=== PATIENT | female | born 1935 | race Caucasian/White ===

== ENCOUNTER → 2016-07-12 | Outpatient (CLI) | payer OTHER ==
[~2016-07-12] MED LIST: ESCI10TA17 PO; FLUT1AER5 INH; LISI10TA PO; OXYB5TAB74 PO; PANT1TAB48 PO; PLEXUS PROBIO PO; VTMD PO
--- NOTE | 2016-07-12 15:54 | EXERCISE STRESS TEST ---
This stress test is being performed because of exertional dyspnea. The patient exercised for 3 minutes on a standard Toby protocol attaining 4.6 METS and a peak heart rate of 146 beats per minute (greater than 100% predicted maximum). The test was terminated due to fatigue. The patient did not experience chest discomfort. Initial blood pressure 155/79 and this increased to 190/80 at peak exertion. Baseline EKG shows normal sinus rhythm without abnormalities. Throughout exercise recovery, the ST segments remained normal. There were no dysrhythmias. CONCLUSIONS: 1. Normal exercise treadmill test at 4.6 METS and a peak heart rate of greater than 100% predicted maximum. 2. No exercise induced chest pain. 3. No dysrhythmias.
== END | disposition home or self-care (01) ==
LOC: C.CPL 09:45
PROVIDERS: ATTEND Family Medicine
DX: R06.02 Shortness of breath (principal)

== ENCOUNTER → 2017-01-03 | Outpatient (CLI) | payer OTHER ==
--- NOTE | 2017-01-03 10:56 | DIAGNOSTIC IMAGING REPORT ---
ORBITS FOR MRI HISTORY:81 yearsFemaleLUBMAR RADICULOPATHY . Patient states that a piece of gold is present within the right orbit. COMPARISON: Brain MRI 03/24/2009. TECHNIQUE: 3 views of the orbits. FINDINGS: There is a 1.9 x 0.5 cm curved metallic density structure within the anterior aspect of the superior right orbit. No additional radiopaque body is seen. No fracture. Paranasal sinuses are aerated. Dental amalgam hardware is noted. IMPRESSION: 1.9 x 0.5 cm curved metallic density structure is present within the anterior aspect of the superior right orbit. The above report was generated using voice recognition software. It may contain grammatical, syntax or spelling errors. Electronically signed by: Good Dupont 01/03/2017 10:54 AM Dictated Date/Time: 01/03/2017 10:51 AM
== END | disposition home or self-care (01) ==
LOC: C.RAD 10:23
PROVIDERS: ATTEND Neurological Surgery
DX: M54.16 Radiculopathy, lumbar region (principal); T15.91XA Foreign body on external eye, part unspecified, right eye, initial encounter; W45.8XXA Other foreign body or object entering through skin, initial encounter

== ENCOUNTER → 2017-01-08 | Outpatient (CLI) | payer OTHER ==
--- NOTE | 2017-01-08 10:59 | DIAGNOSTIC IMAGING REPORT ---
LUMBAR SPINE MRI HISTORY: Back pain M54.16 TECHNIQUE: Multiplanar multisequence MRI of the lumbar spine was performed without the use of contrast. COMPARISON: None FINDINGS: For the purpose of the report the L5-S1 disc space will be located on axial image 23 of 30. Partial lumbarization of the first sacral segment versus 6 lumbar type vertebral bodies. Considerable degenerative disc change throughout. L1-L2: Mild broad-based bulging disc. Mild impact anterior thecal sac. Minimal narrowing of the neuroforamina bilaterally L2-L3: Mild multifactorial narrowing of the spinal canal. Neuroforamina are patent bilaterally. L3-L4: Mild multifactorial narrowing of the spinal canal. Considerable degenerative change posterior elements. L4-L5: Mild multifactorial narrowing of the L4-L5 level lumbar spine. Considerable degenerative change posterior elements. L5-S1: Minimal disc bulge. Mild narrowing left neuroforamina. IMPRESSION: 1. Considerable degenerative disc change throughout the entire lumbar region. 2. Partial lumbarization of the first sacral segment. 3. Mild multifactorial narrowing of the spinal canal at L2-L3, L3-L4, and L4-L5. 4. Mild broad-based bulging disc L1-L2 and L5-S1 5. No evidence for major disc herniation or severe spinal stenosis. 6. Significant degenerative changes of posterior elements throughout the entire lumbar region. Electronically signed by: Juan Azar M.D. 01/08/2017 10:58 AM Dictated Date/Time: 01/08/2017 10:27 AM
== END | disposition home or self-care (01) ==
LOC: C.MRI 09:26
PROVIDERS: ATTEND Neurological Surgery
DX: M54.16 Radiculopathy, lumbar region (principal); M48.06 Spinal stenosis, lumbar region

== ENCOUNTER → 2017-06-24 | Outpatient (CLI) | payer OTHER ==
[~2017-06-24] MED LIST changes: +DTR/5 PO; -OXYB5TAB74 PO; +PANT1TAB3 PO; -PANT1TAB48 PO
--- NOTE | 2017-06-24 15:30 | MAMMOGRAPHY REPORT ---
BILATERAL DIGITAL SCREENING MAMMOGRAM WITH CAD: 06/24/2017 CLINICAL HISTORY: Routine screening. Patient has no complaints. TECHNIQUE: Bilateral CC and MLO views were obtained. Current study was also evaluated with a Compute r Aided Detection (CAD) system. COMPARISON: Comparison is made to exams dated: 07/24/2011 mammogram - [facility], , and 07/12/2004 mammogram - [facility]. BREAST COMPOSITION: There are scattered areas of fibroglandular density in both breasts. FINDINGS: There are moderate vascular calcifications in the breasts. Numerous benign coarse and memo like calcifications bilaterally. No suspicious mass, architectural distortion or cluster of microcal cifications is seen. IMPRESSION: ACR BI-RADS CATEGORY 2: BENIGN There is no mammographic evidence of malignancy. A 1 year screening mammogram is recommended. The pa tient will receive written notification of the results. Approximately 10% of breast cancers are not detected with mammography. A negative mammographic report should not delay biopsy if a clinically suggestive mass is present. Kassandra Ramos M.D. ay/:06/24/2017 13:11:54 [employer] Developer: Maricel Martínez RT(R)(M), [facility] letter sent: Normal 1/2 BI-RADS Code: ACR BI-RADS Category 2: Benign
== END | disposition home or self-care (01) ==
LOC: C.MAMM 12:30
PROVIDERS: ATTEND Family Medicine
DX: Z12.31 Encounter for screening mammogram for malignant neoplasm of breast (principal)

== ENCOUNTER 2021-05-10 13:25 | Inpatient (IN) ==
[2021-05-10 14:30] LABS: Basophils # (auto) 0.05 K/uL (0-0.2); Basophils % (auto) 0.7 %; Eosinophils # (auto) 0.26 K/uL (0-0.5); Eosinophils % (auto) 3.4 %; Hematocrit (blood only) 43.3 % (37-47); Hemoglobin 14.3 g/dL (12.0-16.0); Immature Granulocytes # (auto) 0.02 K/uL (0.00-0.02); Immature Granulocytes % (auto) 0.3 %; Lymphocytes # (auto) 1.68 K/uL (1.2-3.4); Lymphocytes % (auto) 21.9 %; Mean Corpuscular Hemoglobin 31.4 pg (25-34); Mean Platelet Volume 9.7 fL (7.4-10.4); Monocytes # (auto) 0.91 K/uL (0.11-0.59); Monocytes % (auto) 11.9 %; Neutrophils # (auto) 4.75 K/uL (1.4-6.5); Neutrophils % (auto) 61.8 %; Platelet Count 267 K/uL (130-400); RDW Coefficient of Variation 14.8 % (11.5-14.5); RDW Standard Deviation 51.5 fL (36.4-46.3); Red Blood Count 4.56 M/uL (4.2-5.4); White Blood Count 7.67 K/uL (4.8-10.8)
[2021-05-10 14:48] LABS: BUN Creatinine Ratio 13.9 (10-20); Calcium 9.5 mg/dl (8.5-10.1); Creatinine Clr Calc Pharmacy 37.9 ml/min; Est GFR (African American) 47.7 ml/min; Est GFR (Non-African American) 41.2 ml/min
[2021-05-10 15:10] LABS: Partial Thromboplastin Ratio 0.9; Partial Thromboplastin Time 23.6 Seconds (21.0-31.0)
--- NOTE | 2021-05-10 15:27 | XRay Report ---
XR chest 1V not portable CLINICAL HISTORY: syncope and fall. Evaluate cardiopulmonary status COMPARISON STUDY: 12/18/2020 TECHNIQUE: 1 view of the chest FINDINGS: Single frontal view of the chest demonstrates the cardiomediastinal silhouette to be within normal li mits. The lungs are clear of alveolar opacities. There is no evidence for pleural effusion. There is no evidence for vascular congestion. There is no acute osseous pathology. IMPRESSION: No acute cardiopulmonary disease. ACT 112: Negative or not required by law. Electronically signed by: Jacob Trinidad M.D. 05/10/2021 3:26 PM
--- NOTE | 2021-05-10 15:28 | XRay Report ---
SINGLE VIEW PELVIS; 2 VIEWS LEFT FEMUR CLINICAL HISTORY: Fall. Left leg injury. FINDINGS: 2 AP supine views of the pelvis with AP and crosstable lateral views of the left femur are compared to study dated 10/29/2007. The skeletal structures are osteopenic. Bilateral bipolar hip arthr oplasties are in place. There is no radiographic evidence of acute fracture involving the bony pelvis or the right hip. There is a large acute subtrochanteric periprosthetic fracture of the left proxima l femur with overlying soft tissue edema. Fracture lucency extends extends from the subtrochanteric r egion to the tip of the arthroplasty stem in the mid femoral shaft. There is mild displacement of the proximal fragments. The distal left femur appears intact. A left knee arthroplasty is in place. IMPRESSION: 1. Large periprosthetic fracture of the left proximal femur as detailed above. 2. No additional fracture is seen involving the bony pelvis or the right proximal femur. Electronically signed by: Gregorio Marin M.D. 05/10/2021 3:27 PM
[2021-05-10] MEDS ORDERED: MoRPHine SULFATE 4 MG/ML 1 ML CARP\\VIAL IV STA (16:33)
[2021-05-10] MEDS ORDERED: MoRPHine SULFATE 4 MG/ML 1 ML CARP\\VIAL IV PRN (16:51)
--- NOTE | 2021-05-10 17:06 | CT Scan Report ---
CT head/brain wo con CLINICAL HISTORY: 86 years-old Female with syncope and fall. Acute head injury status post syncope w ith fall TECHNIQUE: Multiple axial CT images of the head were obtained without contrast. A dose lowering tech nique was utilized adhering to the principles of ALARA. COMPARISON: CT cervical spine of same day, head CT 12/18/2020 FINDINGS: No acute intracranial hemorrhage, midline shift, intracranial mass, hydrocephalus, territorial ischem ia or abnormal extra-axial collection. Age-related involutional changes. White matter hypodensities s uggest chronic microvascular ischemic disease. Artifact from the postoperative changes within the rig ht orbit again limits the study. Bilateral lens repair. The calvarium is intact. The paranasal sinuses, mastoid air cells, and middle ear cavities are clear . IMPRESSION: No acute intracranial abnormality or calvarial fracture. ACT 112: Negative or not required by law. The above report was generated using voice recognition software. It may contain grammatical, syntax o r spelling errors. Electronically signed by: George Dupont M.D. 05/10/2021 5:05 PM
[2021-05-10] MEDS: MoRPHine SULFATE 2 MG/ML CARP IV PRN ×5 (17:12→22:31)
--- NOTE | 2021-05-10 17:12 | CT Scan Report ---
CT cervical spine wo con CT DOSE: 1010.81 mGy.cm CLINICAL HISTORY: 86 years-old Female with syncope and fall. Acute head and neck injury status post syncope with fall COMPARISON: Head CT of same day common brain MRI 11/29/2008. TECHNIQUE: Multiple axial CT images of the cervical spine were obtained without contrast. A dose low ering technique was utilized adhering to the principles of ALARA. FINDINGS: Unchanged deformity of the dens suggestive of a chronic fracture. Multilevel intervertebral disc space narrowing, moderate to severe at C5-C6. Pronounced multilevel spondylitic spurring with p osterior disc osteophyte complex formations, most pronounced at C5-C6 and C6 or C7. 4 mm anterolisthe sis C4 on C5 is likely secondary to chronic facet arthrosis. There is severe multilevel facet arthrop athy. Chronic right occipital calvarial defect. Minimal superior end plate compression deformity with out retropulsion involves the T1 vertebral body, likely chronic. Mild extra scoliosis of the cervical thoracic junction. Multilevel neural foraminal narrowing. No pneumothorax. Calcified plaque of the carotid arteries. No prevertebral edema. IMPRESSION: 1. No acute cervical spine fracture or subluxation. 2. Chronic findings as above. ACT 112: Negative or not required by law. The above report was generated using voice recognition software. It may contain grammatical, syntax o r spelling errors. Electronically signed by: George Dupont M.D. 05/10/2021 5:10 PM
--- NOTE | 2021-05-10 17:46 | History & Physical Report ---
Date of Service May 10, 2021 Assessment & Plan (1) Jacquelien-prosthetic femoral shaft fracture: Plan: Acetaminophen 1g PO TID, Dilaudid 0.25-0.5mg IV PRN for pain relief, ondansetron for nausea NPO after midnight, IV fluids Type and screen sent Andre cath inserted Medical optimized for surgery at this time. Revised cardiac risk score 1, 6.0% 30-day risk of , MA or cardiac arrest however given her age I suspect this is an underestimate. TTE should not delay surgery unless requested by anesthesia. Consult orthopedics (2) Fall: Plan: Presyncopal (see below) PT/OT post surgery (3) Syncope: Plan: Systolic murmur on exam. TTE Consider orthostatics post operatively. Hold parameters on lisinopril as below. (4) Mild intermittent asthma: Plan: No exacerbation Monitor for wheezing (5) Anxiety: Plan: Continue Lexapro 10mg HS (6) Hyperthyroidism: Plan: Tired, insomnia TSH improving. Not completely corrected but this shouldn't delay her operation Continue methimazole 40mg PO daily (7) Overactive bladder: Plan: Continue oxybutynin 10mg PO daily (8) Hiatal hernia: Plan: Continue pantoprazole 40mg pO daily (9) Hypertension: Plan: Continue lisinopril with hold parameters Plan: VTE Prophylaxis - deferred to orthopedics post operatively Diet - regular, NPO at midnight Disposition - admit to med/surg Admission and Anticipated Discharge Date Admission Date: May 10, 2021 History of Present Illness Chief Complaint: Fall, left leg pain Primary Care Provider: Casey Enriquez Ronald Lagos is an 86 year old female who presents to the ER following a fall and left leg pain. She was at [employer] on the way to the rest room, became dizzy and lost conciseness, falling onto left side around 1pm. She reports normally having orthostasis but mild and she just takes her time. No chest pain, shortness of breath or dizziness on exertion. Following the fall she reports left groin pain, current severity 10/10 despite morphine. XR confirmed a periprosthetic left femoral fracture. She reports having her total hip replac ement [address] Velazquez. No head injury. She denies any history of heart attack, reports history of TIA although does not take any antiplatelets for this. Patient case was discussed by ER physician with Dr Benz and recommended admission under medicine with orthopedics on consult. Allergies Allergy/AdvReac Type Severity Reaction Status Date / Time No Known Allergies Allergy Unknown Verified 12/18/20 18:40 Home Medications Medication Instructions Recorded Confirmed Type acetaminophen 500 mg tablet 500 mg PO Q6H PRN 12/18/20 05/10/21 History (Tylenol Extra Strength) escitalopram oxalate 10 mg tablet 10 mg PO HS 12/18/20 05/10/21 History lisinopril 20 mg tablet 20 mg PO QAM 12/18/20 05/10/21 History oxybutynin chloride 10 mg 10 mg PO QAM 12/18/20 05/10/21 History tablet,extended release 24 hr pantoprazole 40 mg tablet,delayed 40 mg PO QAM 12/18/20 05/10/21 History release methimazole 10 mg tablet 40 mg PO DAILY 05/10/21 05/10/21 History Past Med/Surg History Medical History (Updated 05/11/21 @ 07:17 by Armando Shane MD) Anxiety Hiatal hernia History of TIA (transient ischemic attack) History of trigeminal neuralgia s/p surgery Hypertension Hyperthyroidism under Dr Barrington Hamilton Overactive bladder Status post bilateral knee replacements Surgical History (Updated 05/10/21 @ 18:53 by Armando Shane MD) History of bilateral hip replacements History of cholecystectomy History of eye surgery Gold weight placed on left eye to help with closing History of hysterectomy with bilateral oophorectomy History of tonsillectomy Social History Smoking Status: Never smoker Hx Substance Use: No Preferred Language: Slovenian Communication Ability: Effective 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 Beliefs That Will Affect Care: None Current Living Situation: Alone Current Living Situation Comment: Other Information That Helps Us Care for You: No Feels Safe at Home: Yes Safety Concerns: Feels Safe At This Time Assistive Devices: Cane, Glasses and Walker Review of Systems Review of Systems: All systems reviewed & are unremarkable except as noted in HPI & below Physical Exam Constitutional: WD/WN, vitals as above Eyes: PERRL, conjunctivae normal, anicteric sclerae ENMT: Mouth: oral mucous membranes not dry Neck: trachea midline, no thyromegaly Respiratory: normal respiratory effort, lungs clear to auscultation Cardiovascular: Rate/Rhythm: regular rate and regular rhythm Heart Sounds: + murmur (4/6 ESM loudest RUSB) Gastrointestinal (Abdomen): normal bowel sounds, soft, nontender, no hepatosplenomegaly Musculoskeletal: shortened, externally rotated left leg. PT/DP pulses intact and cap refill < 2s, full sensation in toes. Skin: no rashes, warm and dry Neurologic: awake; + does not move all extremities (left leg due to pain) and not confused Psychiatric: A+Ox3, euthymic affect Results & Data Results & Data ([facility]) Vital Signs (Past 12 Hours) Vital Signs Temp Pulse Pulse Resp BP BP Pulse Ox 05/10/21 16:41 84 20 178/88 H 97 05/10/21 14:11 36.8 C 75 18 181/94 H 98 Laboratory Results Abnormal lab results 05/10/21 Range/Units 14:21 RDW Std Deviation 51.5 H (36.4-46.3) fL RDW Coeff of [place] 14.8 H (11.5-14.5) % [place] # (Auto) 0.91 H (0.11-0.59) K/uL Diagnostic Findings CT head/brain wo con CLINICAL HISTORY: 86 years-old Female with syncope and fall. Acute head injury status post syncope with fall TECHNIQUE: Multiple axial CT images of the head were obtained without contrast. A dose lowering technique was utilized adhering to the principles of ALARA. COMPARISON: CT cervical spine of same day, head CT 12/18/2020 FINDINGS: No acute intracranial hemorrhage, midline shift, intracranial mass, hydrocephalus, territorial ischemia or abnormal extra-axial collection. Age- related involutional changes. White matter hypodensities suggest chronic microvascular ischemic disease. Artifact from the postoperative changes within the right orbit again limits the study. Bilateral lens repair. The calvarium is intact. The paranasal sinuses, mastoid air cells, and middle ear cavities are clear. IMPRESSION: No acute intracranial abnormality or calvarial fracture. XR chest 1V not portable CLINICAL HISTORY: syncope and fall. Evaluate cardiopulmonary status COMPARISON STUDY: 12/18/2020 TECHNIQUE: 1 view of the chest FINDINGS: Single frontal view of the chest demonstrates the cardiomediastinal silhouette to be within normal limits. The lungs are clear of alveolar opacities. There is no evidence for pleural effusion. There is no evidence for vascular congestion. There is no acute osseous pathology. IMPRESSION: No acute cardiopulmonary disease. CT cervical spine wo con CT DOSE: 1010.81 mGy.cm CLINICAL HISTORY: 86 years-old Female with syncope and fall. Acute head and neck injury status post syncope with fall COMPARISON: Head CT of same day common brain MRI 11/29/2008. TECHNIQUE: Multiple axial CT images of the cervical spine were obtained without contrast. A dose lowering technique was utilized adhering to the principles of ALARA. FINDINGS: Unchanged deformity of the dens suggestive of a chronic fracture. Multilevel intervertebral disc space narrowing, moderate to severe at C5-C6. Pronounced multilevel spondylitic spurring with posterior disc osteophyte complex formations, most pronounced at C5-C6 and C6 or C7. 4 mm anterolisthesis C4 on C5 is likely secondary to chronic facet arthrosis. There is severe multilevel facet arthropathy. Chronic right occipital calvarial defect. Minimal superior end plate compression deformity without retropulsion involves the T1 vertebral body, likely chronic. Mild extra scoliosis of the cervical thoracic junction. Multilevel neural foraminal narrowing. No pneumothorax. Calcified plaque of the carotid arteries. No prevertebral graham ma. IMPRESSION: 1. No acute cervical spine fracture or subluxation. 2. Chronic findings as above. SINGLE VIEW PELVIS; 2 VIEWS LEFT FEMUR CLINICAL HISTORY: Fall. Left leg injury. FINDINGS: 2 AP supine views of the pelvis with AP and crosstable lateral views of the left femur are compared to study dated 10/29/2007. The skeletal structures are osteopenic. Bilateral bipolar hip arthroplasties are in place. There is no radiographic evidence of acute fracture involving the bony pelvis or the right hip. There is a large acute subtrochanteric periprosthetic fracture of the left proximal femur with overlying soft tissue edema. Fracture lucency extends extends from the subtrochanteric region to the tip of the arthroplasty stem in the mid femoral shaft. There is mild displacement of the proximal fragments. The distal left femur appears intact. A left knee arthroplasty is in place. IMPRESSION: 1. Large periprosthetic fracture of the left proximal femur as detailed above. 2. No additional fracture is seen involving the bony pelvis or the right proximal femur. Medications Administered ER Medications Given: Morphine 4mg IV Morphine 2mg IV ECG Rate (beats per minute): 74 Rhythm: sinus with SA Comparison ECG Date: from (December 18, 2020) Change: no significant change Code Status & VTE Plan Code Status Full VTE Prophylaxis Plan VTE Prophylaxis will be ordered: Yes PG Care Time/CCT Total # of Minutes Spent Total Time Spent with Patient: Total time spent is greater than 50% in coordination of care (as documented) at patient's floor/unit and/or counseling patient: Coding Level of Care Code 45139 Initial Inpt Care Lvl 2 Diagnoses Jacqueline-prosthetic femoral shaft fracture M97.8XXA; Z96.649 Mild intermittent asthma J45.20 Anxiety F41.9 Hyperthyroidism E05.90 Overactive bladder N32.81 Hiatal hernia K44.9 Hypertension I10 Fall W19.XXXA Syncope R55
--- NOTE | 2021-05-10 18:53 | Emergency Department Note ---
History of Present Illness General Chief complaint: Fall Stated complaint: FALL, L HIP & KNEE PAIN Time Seen by Provider: 05/10/21 14:07 History of Present Illness Provider complaint: Syncope left hip pain Onset (ago): hour(s) 1 Location: lower extremity and left Radiation: non-radiation Severity: moderate Pain Consistency: + constant Maximum Pain Intensity: 7 Current Pain Intensity: 7 Quality: + stabbing and + sharp Relieved By: + immobilization Exacerbated By: + movement Associated symptoms: + headaches; no chest pain, no nausea/vomiting, no shortness of breath or no weakness 86-year-old female presents emergency department for syncope and left hip pain. Patient states she had a syncopal episode while going to the restroom at [facility] approximately 1 hour ago. Patient states she was walking to the restroom and the next he knew she knew she was on the floor. She states that a man who was working at [facility] told her that she hit her head. Patient is currently reporting left hip pain. Patient does have a history of a left hip replacement by [facility] approximately 7 years ago. Home Medications Medication Instructions Recorded Confirmed Type acetaminophen 500 mg tablet 500 mg PO Q6H PRN 12/18/20 05/10/21 History (Tylenol Extra Strength) escitalopram oxalate 10 mg tablet 10 mg PO HS 12/18/20 05/10/21 History lisinopril 20 mg tablet 20 mg PO QAM 12/18/20 05/10/21 History oxybutynin chloride 10 mg 10 mg PO QAM 12/18/20 05/10/21 History tablet,extended release 24 hr pantoprazole 40 mg tablet,delayed 40 mg PO QAM 12/18/20 05/10/21 History release methimazole 10 mg tablet 40 mg PO DAILY 05/10/21 05/10/21 History Allergies Allergy/AdvReac Type Severity Reaction Status Date / Time No Known Allergies Allergy Unknown Verified 12/18/20 18:40 Past Med/Surg History Medical History Anxiety History of TIA (transient ischemic attack) History of trigeminal neuralgia s/p surgery Status post bilateral knee replacements Surgical History History of bilateral hip replacements Social History Smoking Status: Never smoker Preferred Language: Belarusian Feels Safe at Home: Yes Review of Systems A total of 10 systems reviewed and were otherwise negative Physical Exam Vital Signs Vital Signs - 24 hr 05/10/21 14:11 05/10/21 16:41 Temperature 36.8 C Temperature Source Oral Pulse Rate 75 Pulse Rate [Finger] 84 Respiratory Rate 18 20 Respiratory Effort / Characteristics Non-Labored Spontaneous Respiratory Depth Normal Respiratory Pattern Regular Blood Pressure 181/94 H Blood Pressure [Right Arm] 178/88 H Blood Pressure Mean 123 Blood Pressure Mean [Right Arm] 118 Pulse Oximetry 98 97 Oxygen Delivery Method Room Air Sepsis Recent Fever Within 48 Hours No Sepsis New/Unexplained Change in Mental Status No Sepsis Action Taken by Nursing No Action Required Physical Exam GENERAL: She is oriented to person, place, and time. She appears well-developed and well-nourished. She does not appear distressed. HENT: Exam performed. -Head: Normocephalic and atraumatic. -Right Ear: External ear normal. No mastoid tenderness. -Left Ear: External ear normal. No mastoid tenderness. -Mouth/Throat: The oropharynx is clear and moist. No trismus in the jaw. No dental abscesses or uvula swelling. No oropharyngeal exudate or tonsillar abscesses. EYES: Conjunctivae and EOM are normal. Pupils are equal, round, and reactive to light. Right eye exhibits no discharge. Left eye exhibits no discharge. No scleral icterus. NECK: Normal range of motion. Neck supple. No JVD present. No spinous process tenderness present. No carotid bruit present. No rigidity. No tracheal deviation and normal range of motion present. No Brudzinski's sign and no Kernig's sign noted. CV: Normal rate, regular rhythm, normal heart sounds and intact distal pulses. There is no peripheral edema. Palpable radial pulses bue. PULM/CHEST: Effort normal and breath sounds normal. No respiratory distress. No stridor. She has no wheezes. She has no rales. -Chest Wall: She exhibits no tenderness. ABD: The abdomen is soft. Bowel sounds are normal. She has no distension. No mass is present. There is no tenderness. There is no rebound, no guarding, no Ahn's sign and no tenderness at McBurney's point. Rovsig negative MUSC/SKEL: Pain on palpation of the left hip. Left lower extremity is shortened and externally rotated. NEURO: Motor and sensation grossly intact. SKIN: Skin is warm and dry. She is not diaphoretic. PSYCH: She has a normal mood and affect. Behavior is normal. Judgment and thought content normal. Course Course 1407: The patient was evaluated in room C6. A complete history and physical exam was performed Cardiac monitoring: An order was placed for continuous cardiac monitoring. The monitor shows a rate of 70 with sinus rhythm 1730: Vital signs stable. Imaging shows left periprosthetic hip fracture. Disc ussed case with orthopedics Dr. Benz who agrees to be on consult and states admit to medicine. Administered Medications Morphine Sulfate (Morphine Sulfate 2 Mg/Ml Carp) 2 mg IV Q1H PRN PRN Reason: Moderate Pain (Rating 3,4,5,6) Stop: 05/24/21 16:50 Last Admin: 05/10/21 18:31 Dose: 2 mg Documented by: [id number] Admin: 05/10/21 17:12 Dose: 2 mg Documented by: [id number] Discontinued Medications Morphine Sulfate (Morphine Sulfate 4 Mg/Ml 1 Ml Carp\Vial) 4 mg IV NOW STA Stop: 05/10/21 16:34 Last Admin: 05/10/21 16:39 Dose: 4 mg Documented by: [id number] Medical Decision Making Laboratory Data Result diagrams: 05/10/21 14:21 05/10/21 14:21 Lab Results 05/10/21 05/10/21 05/10/21 Range/Units 14:21 14:21 14:21 WBC 7.67 (4.8-10.8) K/uL RBC 4.56 (4.2-5.4) M/uL Hgb 14.3 (12.0-16.0) g/dL Hct 43.3 (37-47) % MCV 95.0 (80-100) fL MCH 31.4 (25-34) pg MCHC 33.0 (32-36) g/dL RDW Std Deviation 51.5 H (36.4-46.3) fL RDW Coeff of [place] 14.8 H (11.5-14.5) % Plt Count 267 (130-400) K/uL MPV 9.7 (7.4-10.4) fL Immature Gran % (Auto) 0.3 % Neut % (Auto) 61.8 % Lymph % (Auto) 21.9 % [place] % (Auto) 11.9 % Eos % (Auto) 3.4 % Baso % (Auto) 0.7 % Neut # (Auto) 4.75 (1.4-6.5) K/uL Lymph # (Auto) 1.68 (1.2-3.4) K/uL [place] # (Auto) 0.91 H (0.11-0.59) K/uL Eos # (Auto) 0.26 (0-0.5) K/uL Baso # (Auto) 0.05 (0-0.2) K/uL Immature Gran # (Auto) 0.02 (0.00-0.02) K/uL PT 10.0 (9.0-12.0) Seconds INR 1.0 (0.9-1.1) APTT 23.6 (21.0-31.0) Seconds PTT Ratio 0.9 Sodium 136 (136-145) mmol/L Potassium 4.0 (3.5-5.1) mmol/L Chloride 105 (98-107) mmol/L Carbon Dioxide 24 (21-32) mmol/L Anion Gap 7.0 (3-11) BUN 17 (7-18) mg/dl Creatinine 1.20 (0.6-1.2) mg/dl Est Cr Clr Drug Dosing 37.9 ml/min Est GFR ( Amer) 47.7 ml/min Est GFR (Non-Af Amer) 41.2 ml/min BUN/Creatinine Ratio 13.9 (10-20) Glucose 99 (70-99) mg/dl Calcium 9.5 (8.5-10.1) mg/dl Troponin I (0-0.045) ng/ml COVID-19 Eval Order Blood Type Antibody Screen 05/10/21 05/10/21 05/10/21 Range/Units 16:40 17:11 18:18 WBC (4.8-10.8) K/uL RBC (4.2-5.4) M/uL Hgb (12.0-16.0) g/dL Hct (37-47) % MCV (80-100) fL MCH (25-34) pg MCHC (32-36) g/dL RDW Std Deviation (36.4-46.3) fL RDW Coeff of [place] (11.5-14.5) % Plt Count (130-400) K/uL MPV (7.4-10.4) fL Immature Gran % (Auto) % Neut % (Auto) % Lymph % (Auto) % [place] % (Auto) % Eos % (Auto) % Baso % (Auto) % Neut # (Auto) (1.4-6.5) K/uL Lymph # (Auto) (1.2-3.4) K/uL [place] # (Auto) (0.11-0.59) K/uL Eos # (Auto) (0-0.5) K/uL Baso # (Auto) (0-0.2) K/uL Immature Gran # (Auto) (0.00-0.02) K/uL PT (9.0-12.0) Seconds INR (0.9-1.1) APTT (21.0-31.0) Seconds PTT Ratio Sodium (136-145) mmol/L Potassium (3.5-5.1) mmol/L Chloride (98-107) mmol/L Carbon Dioxide (21-32) mmol/L Anion Gap (3-11) BUN (7-18) mg/dl Creatinine (0.6-1.2) mg/dl Est Cr Clr Drug Dosing ml/min Est GFR ( Amer) ml/min Est GFR (Non-Af Amer) ml/min BUN/Creatinine Ratio (10-20) Glucose (70-99) mg/dl Calcium (8.5-10.1) mg/dl Troponin I < 0.015 (0-0.045) ng/ml COVID-19 Eval Order Covid19 at [facility] Blood Type B Positive Antibody Screen NEGATIVE Imaging Data Radiologist's Impression: Cervical Spine CT 05/10/21 14:15 CT cervical spine wo con CT DOSE: 1010.81 mGy.cm CLINICAL HISTORY: 86 years-old Female with syncope and fall. Acute head and neck injury status post syncope with fall COMPARISON: Head CT of same day common brain MRI 11/29/2008. TECHNIQUE: Multiple axial CT images of the cervical spine were obtained without contrast. A dose lowering technique was utilized adhering to the principles of ALARA. FINDINGS: Unchanged deformity of the dens suggestive of a chronic fracture. Multilevel intervertebral disc space narrowing, moderate to severe at C5-C6. Pronounced multilevel spondylitic spurring with posterior disc osteophyte complex formations, most pronounced at C5-C6 and C6 or C7. 4 mm anterolisthesis C4 on C5 is likely secondary to chronic facet arthrosis. There is severe multilevel facet arthropathy. Chronic right occipital calvarial defect. Minimal superior end plate compression deformity without retropulsion involves the T1 vertebral body, likely chronic. Mild extra scoliosis of the cervical thoracic junction. Multilevel neural foraminal narrowing. No pneumothorax. Calcified plaque of the carotid arteries. No prevertebral edema. IMPRESSION: 1. No acute cervical spine fracture or subluxation. 2. Chronic findings as above. ACT 112: Negative or not required by law. The above report was generated using voice recognition software. It may contain grammatical, syntax or spelling errors. Electronically signed by: George Dupont M.D. 05/10/2021 5:10 PM Chest X-Ray 05/10/21 14:15 XR chest 1V not portable CLINICAL HISTORY: syncope and fall. Evaluate cardiopulmonary status COMPARISON STUDY: 12/18/2020 TECHNIQUE: 1 view of the chest FINDINGS: Single frontal view of the chest demonstrates the cardiomediastinal silhouette to be within normal limits. The lungs are clear of alveolar opacities. There is no evidence for pleural effusion. There is no evidence for vascular congestion. There is no acute osseous pathology. IMPRESSION: No acute cardiopulmonary disease. ACT 112: Negative or not required by law. Electronically signed by: Jacob Trinidad M.D. 05/10/2021 3:26 PM Femur X-Ray 05/10/21 14:15 SINGLE VIEW PELVIS; 2 VIEWS LEFT FEMUR CLINICAL HISTORY: Fall. Left leg injury. FINDINGS: 2 AP supine views of the pelvis with AP and crosstable lateral views of the left femur are compared to study dated 10/29/2007. The skeletal structures are osteopenic. Bilateral bipolar hip arthroplasties are in place. There is no radiographic evidence of acute fracture involving the bony pelvis or the right hip. There is a large acute subtrochanteric periprosthetic fracture of the left proximal femur with overlying soft tissue edema. Fracture lucency extends extends from the subtrochanteric region to the tip of the arthroplasty stem in the mid femoral shaft. There is mild displacement of the proximal fragments. The distal left femur appears intact. A left knee arthroplasty is in place. IMPRESSION: 1. Large periprosthetic fracture of the left proximal femur as detailed above. 2. No additional fracture is seen involving the bony pelvis or the right p roximal femur. Electronically signed by: Gregorio Marin M.D. 05/10/2021 3:[address] 05/10/21 14:15 CT head/brain wo con CLINICAL HISTORY: 86 years-old Female with syncope and fall. Acute head injury status post syncope with fall TECHNIQUE: Multiple axial CT images of the head were obtained without contrast. A dose lowering technique was utilized adhering to the principles of ALARA. COMPARISON: CT cervical spine of same day, head CT 12/18/2020 FINDINGS: No acute intracranial hemorrhage, midline shift, intracranial mass, hydrocephalus, territorial ischemia or abnormal extra-axial collection. Age- related involutional changes. White matter hypodensities suggest chronic microvascular ischemic disease. Artifact from the postoperative changes within the right orbit again limits the study. Bilateral lens repair. The calvarium is intact. The paranasal sinuses, mastoid air cells, and middle ear cavities are clear. IMPRESSION: No acute intracranial abnormality or calvarial fracture. ACT 112: Negative or not required by law. The above report was generated using voice recognition software. It may contain grammatical, syntax or spelling errors. Electronically signed by: George Dupont M.D. 05/10/2021 5:05 PM Pelvis X-Ray 05/10/21 14:15 SINGLE VIEW PELVIS; 2 VIEWS LEFT FEMUR CLINICAL HISTORY: Fall. Left leg injury. FINDINGS: 2 AP supine views of the pelvis with AP and crosstable lateral views of the left femur are compared to study dated 10/29/2007. The skeletal structures are osteopenic. Bilateral bipolar hip arthroplasties are in place. There is no radiographic evidence of acute fracture involving the bony pelvis or the right hip. There is a large acute subtrochanteric periprosthetic fracture of the left proximal femur with overlying soft tissue edema. Fracture lucency extends extends from the subtrochanteric region to the tip of the arthroplasty stem in the mid femoral shaft. There is mild displacement of the proximal fragments. The distal left femur appears intact. A left knee arthroplasty is in place. IMPRESSION: 1. Large periprosthetic fracture of the left proximal femur as detailed above. 2. No additional fracture is seen involving the bony pelvis or the right proximal femur. Electronically signed by: Gregorio Marin M.D. 05/10/2021 3:27 PM ECG Data Indication: + other (Preop) Rate (beats per minute): 74 Rhythm: + normal sinus ECG Intervals/blocks: + Normal QRS, + Normal MO and + Normal QT-c ECG ST segments: + Normal ST segments MDM Narrative Vital signs stable. Imaging shows left periprosthetic hip fracture. Discussed case with orthopedics Dr. Benz who agrees to be on consult and states admit to medicine. Impression & Plan Jacqueline-prosthetic femoral shaft fracture Discharge Plan Visit Data Chief Complaint: Fall Stated Complaint: FALL, L HIP & KNEE PAIN Discharge Problem: Jacqueline-prosthetic femoral shaft fracture Patient Disposition: Admitted As Inpatient Forms Stand Alone Forms: [facility] Prescriptions Prescriptions: No Action oxybutynin chloride 10 mg tablet extended release 24hr 10 mg PO QAM RF: 0 lisinopril 20 mg tablet 20 mg PO QAM RF: 0 pantoprazole 40 mg tablet,delayed release (DR/EC) 40 mg PO QAM RF: 0 escitalopram oxalate 10 mg tablet 10 mg PO HS RF: 0 acetaminophen [Tylenol Extra Strength] 500 mg Tablet 500 mg PO Q6H PRN (Reason: Pain) RF: 0 methimazole 10 mg tablet 40 mg PO DAILY RF: 0 Referrals Referrals: Casey Enriquez [Primary Care Provider] -
[2021-05-10 18:54] LABS: Appearance Urine Clear (Clear); Bilirubin Urine Negative (Negative); Blood Urine Negative (Negative); Color Urine Yellow; Glucose Urine UA Negative (Negative); Ketones Urine Trace (Negative); Leukocyte Esterase Urine Negative (Negative); Nitrite Urine Negative (Negative); Protein Urine Negative (Negative); Specific Gravity Urine 1.015 (1.000-1.030); Urobilinogen Urine Negative (Negative)
[2021-05-10] MEDS: ACETAMINOPHEN 500 MG TAB PO SCH (21:09)
[2021-05-10] MEDS ORDERED: HYDROmorphone INJ 0.5 MG/0.5 ML SYR IV PRN (23:07)
[2021-05-10] MEDS ORDERED: NALOXONE HCL 0.4 MG/1 ML VIAL/CARP IV PRN (23:07)
[2021-05-10] MEDS ORDERED: ALUMINUM/MAGNESIUM SUSP 30 ML UDC PO PRN (23:07)
[2021-05-10] MEDS ORDERED: POLYETHYLENE (MIRALAX) 17 GM PACK PO PRN (23:07)
[2021-05-10] MEDS ORDERED: MAGNESIUM HYDROXIDE SUSP 30 ML UDC PO PRN (23:07)
[2021-05-10] MEDS ORDERED: ONDANSETRON INJ 2 MG/ML 2 ML VIAL IV PRN (23:07)
[2021-05-10] MEDS ORDERED: bisacodyL 10 MG SUPP PR PRN (23:07)
[2021-05-10] MEDS: LACTATED RINGER'S 1,000 ML IV SCH (23:44)
[2021-05-10] MEDS: HYDROmorphone INJ 0.5 MG/0.5 ML SYR IV PRN (23:45)
[2021-05-10] MEDS: DOCUSATE SODIUM/SENNA 50/8.6MG TAB PO SCH (23:48)
[2021-05-11] MEDS: HYDROmorphone INJ 0.5 MG/0.5 ML SYR IV PRN ×4 (02:56→14:35)
--- NOTE | 2021-05-11 06:17 | Electrocardiogram Report ---
Test Reason : Blood Pressure : / mmHG Vent. Rate : 074 BPM Atrial Rate : 074 BPM P-R Int : 186 ms QRS Dur : 088 ms QT Int : 426 ms P-R-T Axes : 053 015 043 degrees QTc Int : 472 ms Sinus rhythm with marked sinus arrhythmia Otherwise normal ECG When compared with ECG of 18-DEC-2020 15:57, Premature atrial complexes are no longer Present QT has lengthened Confirmed by Candelario Stahl ([id number]) on 05/11/2021 6:16:53 AM Referred By: REFERRED SELF Confirmed By:Candelario Stahl
[2021-05-11] MEDS: LACTATED RINGER'S 1,000 ML IV SCH (08:18)
[2021-05-11] MEDS: lisinopril 20 MG TAB PO SCH (10:04)
[2021-05-11] MEDS: PANTOprazole 40 MG TAB PO SCH (10:04)
[2021-05-11] MEDS: OXYBUTYNIN CHLORIDE XL 5 MG TABCR PO SCH (10:05)
[2021-05-11] MEDS: methIMAzole 5 MG TABLET PO SCH (10:05)
[2021-05-11] MEDS: ACETAMINOPHEN 500 MG TAB PO SCH ×3 (10:11→21:07)
--- NOTE | 2021-05-11 10:54 | CT Scan Report ---
CT hip LT wo con HISTORY: 86 years-old Female Assess periprosthetic femoral fracture acute left-sided hip pain withou t reported trauma COMPARISON: Left femur radiographs 05/10/2021 TECHNIQUE: Multiple axial CT images of the left hip were obtained without the use of IV contrast. A d ose lowering technique was used consistent with the principals of ALLIE. FINDINGS: Left hip total joint arthroplasty. Artifact from the hardware limits the study. There is an acute per iprosthetic fracture of the subtrochanteric proximal femoral diaphysis with the fracture fragment dis placed medially 1.5 cm. A subtle horizontal fracture component extends along the length of the femora l stem and extends into the anterior cortex just distal to the stem on image 413 series 3. No disloca tion or additional fracture identified. No acute process of the imaged intrapelvic structures. No large intramuscular hematoma of the thigh o r hip identified. IMPRESSION: 1. Left hip total joint arthroplasty. Artifact from the hardware limits the study. 2. Acute periprosthetic left femoral fracture with mild displacement redemonstrated as above. ACT 112: Negative or not required by law. The above report was generated using voice recognition software. It may contain grammatical, syntax o r spelling errors. Electronically signed by: George Dupont M.D. 05/11/2021 10:52 AM
--- NOTE | 2021-05-11 11:48 | Orthopedic Consultation ---
Date of Consultation May 11, 2021 Assessment & Plan (1) Periprosthetic fracture of femur following total replacement of hip: Acute left periprosthetic femur fracture. Treatment for that would be plating and cerclage wiring. Would affect length of memo required for future revision total knee replacement if femoral component requires replacement. At this point proceed with open reduction internal fixation left femur fracture with cerclage wires. Looking into availability of appropriate equipment or possible transfer to [facility] to Dr. Sam who was going to do her revision knee replacement. History of Present Illness Reason for Consultation: Left femur fracture Attending Physician: Fredrick Deleon DO History of Present Illness 86-year-old female who suffered a fall and fractured her left femur. Patient sustained a periprosthetic left femur fracture. Patient has history of bilateral hip replacements and knee replacements by Dr. Velazquez. 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 Sam in [facility]. This was put off due to Covid issues. Allergies Allergy/AdvReac Type Severity Reaction Status Date / Time No Known Allergies Allergy Unknown Verified 12/18/20 18:40 Home Medications Medication Instructions Recorded Confirmed Type acetaminophen 500 mg tablet 500 mg PO Q6H PRN 12/18/20 05/10/21 History (Tylenol Extra Strength) escitalopram oxalate 10 mg tablet 10 mg PO HS 12/18/20 05/10/21 History lisinopril 20 mg tablet 20 mg PO QAM 12/18/20 05/10/21 History oxybutynin chloride 10 mg 10 mg PO QAM 12/18/20 05/10/21 History tablet,extended release 24 hr pantoprazole 40 mg tablet,delayed 40 mg PO QAM 12/18/20 05/10/21 History release methimazole 10 mg tablet 40 mg PO DAILY 05/10/21 05/10/21 History Patient History Medical History Anxiety Hiatal hernia History of TIA (transient ischemic attack) History of trigeminal neuralgia s/p surgery Hypertension Hyperthyroidism under Dr Barrington Hamilton Overactive bladder Status post bilateral knee replacements Surgical History History of bilateral hip replacements History of cholecystectomy History of eye surgery Gold weight placed on left eye to help with closing History of hysterectomy with bilateral oophorectomy History of tonsillectomy Social History Smoking Status: Never smoker Hx Substance Use: No Preferred Language: [place] Communication Ability: Effective Ply Bander Required: No Beliefs That Will Affect Care: None marital status: / Current Living Situation: Alone Current Living Situation Comment: How many Children do You have: 1 Other Information That Helps Us Care for You: No Feels Safe at Home: Yes Safety Concerns: Feels Safe At This Time Assistive Devices: Cane and Walker Review of Systems Review of Systems: No recent TIAs, history of tibial loosening requiring revision knee replacement, has trigeminal neuralgia issues ongoing. Relatively comfortable on pain medication along she does not move her leg. Physical Exam Physical Exam: Obese female with thigh and hip obesity and knee obesity. Left leg is mildly externally rotated and no shortening of significance. Distal neurological exam intact. Pain with any rotation. Results & Data ([facility]) Vital Signs (Past 12 Hours) Vital Signs Temp Pulse Resp BP Pulse Ox 05/11/21 08:02 36.5 C 68 17 100/62 90 Diagnostic Findings Reviewed old knee x-rays demonstrating a loose tibial component with intact femoral component. Reviewed recent femur x-rays demonstrated a periprosthetic fracture around a well fixed femoral stem with good bone ingrowth. And a cetabular component appears to be well fixed and satisfactory aligned. There is a fracture just at the tip of the stem noted on x-ray in the lateral cortex nondisplaced and the proximal fracture is more displaced.
--- NOTE | 2021-05-11 12:36 | XCELERA ---
[id number]
--- NOTE | 2021-05-11 16:03 | Communication Note ---
Date of Service: May 11, [address] León. Recommending transfer to [facility] for treatment of her periprosthetic femur fracture. Patient has been under care of Dr. Sam for her knee that is requiring revision left TKA.
--- NOTE | 2021-05-11 17:41 | Hospitalist Progress Note ---
Date of Service May 11, 2021 Assessment & Plan (1) Jacqueline-prosthetic femoral shaft fracture: Plan: - Imaging shows a L JUDE with acute periprosthetic L femoral fracture with mild displacement - Hemodynamically stable; on the revised cardiac risk score she is a 1 with a 6% risk of /SC/cardiac arrest in a 30 day window given H/O TIA after a trigeminal neuralgia - Pain and bowel regimen - Orthopedics consulted - discussed with team - plan is for transfer to [facility] for further surgical management - she is established with Dr. Sam -- Patient would be medically optimized at this point given the acute nature of her fracture. She does not endorse exertional CP or SOB. Discussion of syncope and hyperthyroidism as below (2) Fall: Plan: - Presyncopal (see below) - PT/OT post surgery (3) Syncope: Plan: - Pt has had intermittent episodes of pre-syncope in the past. She was evaluated in the ED and found to have an elevated Cr and orthostasis and resolved with fluid resuscitation. In the process of the work-up she did have a Holter monitor placed in December that showed sinus rhythm with rare atrial and ventricular ectopy; no significant pauses/heart block. She was found to have hyperthyroidism and reports she did lose significant weight and wasn't sure why. She was started on Methimazole which TSH is gradually improving. She states most of these episodes have happened with positional changes. - Echo performed in-house reveals EF 55-60%; no regional wall motion abnormalities; mild concentric LVH; moderate valvular aortic stenosis; mild mitral regurgitation; grade I diastolic dysfunction (abnormal relaxation pattern) - Consider orthostatics post-op - Continue Lisinopril (4) Mild intermittent asthma: Plan: - No exacerbation - Does not require current medications (5) Anxiety: Plan: - Continue Lexapro 10mg HS (6) Hyperthyroidism: Plan: - TSH improving. Not completely corrected but this shouldn't delay her operation -- Reports she lost about 20 lbs prior to discovering this - Continue methimazole 40mg PO daily (7) Overactive bladder: Plan: - Continue oxybutynin 10mg PO daily (8) Hiatal hernia: Plan: - Continue pantoprazole 40mg daily (9) Hypertension: Plan: - Continue lisinopril with hold parameters Plan: Disposition: - Patient pending transfer to [facility] for repair; Has accepting physician but awaiting bed availability - Discussed with Dr. Del Toro, [facility] hospitalist service - Updated daughter at bedside Admission and Anticipated Discharge Date Admission Date: May 10, 2021 Subjective Continues to have L hip pain but seems to be overall manageable. No lightheadedness or dizziness. BP has been normal to slightly elevated which could be pain related. Reports no chest pain or shortness of breath. States she is normally able to go about her normal activity without SOB/CP. Has had intermittent episodes of pre-syncope and did have a syncopal episode leading to this fall. She states the last time she had similar symptoms she was found to be very dry and had positive orthostatic blood pressures. In the workup she did have a holter placed and found to have hyperthyroidism. She has started medication for this and TSH is gradually improving. T3/T4 are WNL. Review of Systems Review of Systems: All systems reviewed & are unremarkable except as noted in Subjective Physical Exam Physical Exam: PHYSICAL EXAM General Appearance: WDWN in NAD who is A&O x 3 HEENT: Head is normocephalic/atraumatic; Hearing grossly intact; Mucous membranes moist Neck: Supple; Trachea midline; Neg JVD Heart: RRR with murmur loudest at the RUSB Lungs: CTA in all lung faria bilaterally; Respirations unlabored; Neg accessory muscle use Abdomen: Soft, non-tender, non-distended; Positive BS x 4 quadrants Extremities: Neg cyanosis or edema Neurological: Speech clear; Gross motor/sensory function intact; Neg focal neurologic deficits Psychiatric: Appropriate mood/affect Skin: Normal Color; Warm/Dry Results & Data Results & Data ([facility]) Vital Signs (Past 12 Hours) Vital Signs Temp Pulse Resp BP BP Pulse Ox 05/11/21 14:53 36.8 C 65 16 124/73 90 05/11/21 08:02 36.5 C 68 17 100/62 90 PG Care Time/CCT Total # of Minutes Spent Total Time Spent with Patient: Total time spent is greater than 50% in coordination of care (as documented) at patient's floor/unit and/or counseling patient: Coding Level of Care Code 99078 Subseq Hosp Care Lvl 3 Diagnoses Jacqueline-prosthetic femoral shaft fracture M97.8XXA; Z96.649 Fall W19.XXXA Syncope R55 Mild intermittent asthma J45.20 Anxiety F41.9 Hyperthyroidism E05.90 Overactive bladder N32.81 Hiatal hernia K44.9 Hypertension I10
[2021-05-11] MEDS: SODIUM CHLORIDE 0.9% 1000ML 1,000 ML IV SCH (18:21)
[2021-05-11] MEDS: DOCUSATE SODIUM/SENNA 50/8.6MG TAB PO SCH (21:07)
[2021-05-12] MEDS: SODIUM CHLORIDE 0.9% 1000ML 1,000 ML IV SCH (05:34)
[2021-05-12] MEDS: HYDROmorphone INJ 0.5 MG/0.5 ML SYR IV PRN ×5 (07:59→23:29)
[2021-05-12] MEDS: lisinopril 20 MG TAB PO SCH (08:05)
[2021-05-12] MEDS: ACETAMINOPHEN 500 MG TAB PO SCH ×3 (08:05→20:24)
[2021-05-12] MEDS: PANTOprazole 40 MG TAB PO SCH (08:06)
[2021-05-12] MEDS: OXYBUTYNIN CHLORIDE XL 5 MG TABCR PO SCH (08:06)
[2021-05-12] MEDS: methIMAzole 5 MG TABLET PO SCH (08:06)
[2021-05-12 11:08] LABS: Hematocrit (blood only) 41.2 % (37-47); Hemoglobin 13.4 g/dL (12.0-16.0); Mean Corpuscular Hemoglobin 31.1 pg (25-34); Mean Corpuscular Hgb Conc 32.5 g/dL (32-36); Mean Corpuscular Volume 95.6 fL (80-100); Mean Platelet Volume 9.6 fL (7.4-10.4); Platelet Count 218 K/uL (130-400); RDW Coefficient of Variation 14.6 % (11.5-14.5); RDW Standard Deviation 51.5 fL (36.4-46.3); Red Blood Count 4.31 M/uL (4.2-5.4)
[2021-05-12 11:27] LABS: BUN Creatinine Ratio 17.3 (10-20); Blood Urea Nitrogen 22 mg/dl (7-18); Calcium 8.7 mg/dl (8.5-10.1); Carbon Dioxide 28 mmol/L (21-32); Chloride 106 mmol/L (98-107); Creatinine Clr Calc Pharmacy 35.2 ml/min; Est GFR (African American) 44.6 ml/min; Est GFR (Non-African American) 38.5 ml/min; Glucose 132 mg/dl (70-99); Sodium 138 mmol/L (136-145)
[2021-05-12 12:02] LABS: Troponin I < 0.015 ng/ml (0-0.045)
--- NOTE | 2021-05-12 13:04 | Hospitalist Progress Note ---
Date of Service May 12, 2021 Assessment & Plan (1) Jacqueline-prosthetic femoral shaft fracture: Plan: - Imaging shows a L JUDE with acute periprosthetic L femoral fracture with mild displacement - Hemodynamically stable; on the revised cardiac risk score she is a 1 with a 6% risk of /CO/cardiac arrest in a 30 day window given H/O TIA after a trigeminal neuralgia - Pain and bowel regimen - Orthopedics consulted - discussed with team on 05/11 - plan is for transfer to [place] for further surgical management - still awaiting bed - she is established with Dr. Sam -- Patient would be medically optimized at this point given the acute nature of her fracture. She does not endorse exertional CP or SOB. Discussion of syncope and hyperthyroidism as below -- Discussed with [place] [facility] on 05/11 (2) Fall: Plan: - Presyncopal (see below) - PT/OT post surgery (3) Syncope: Plan: - Pt has had intermittent episodes of pre-syncope in the past. She was evaluated in the ED and found to have an elevated Cr and orthostasis and resolved with fluid resuscitation. In the process of the work-up she did have a Holter monitor placed in December that showed sinus rhythm with rare atrial and ventricular ectopy; no significant pauses/heart block. She was found to have hyperthyroidism and reports she did lose significant weight and wasn't sure why. She was started on Methimazole which TSH is gradually improving. She states most of these episodes have happened with positional changes. - Echo performed in-house reveals EF 55-60%; no regional wall motion abnormalities; mild concentric LVH; moderate valvular aortic stenosis; mild mitral regurgitation; grade I diastolic dysfunction (abnormal relaxation pa ttern) - Consider orthostatics post-op - Continue Lisinopril - mild elevation in Cr to 1.27 - will recheck labs in AM but if still elevated would hold Lisinopril until post-op (4) Mild intermittent asthma: Plan: - No exacerbation - Does not require current medications (5) Anxiety: Plan: - Continue Lexapro 10mg HS (6) Hyperthyroidism: Plan: - TSH improving. Not completely corrected but this shouldn't delay her operation -- Reports she lost about 20 lbs prior to discovering this - Continue methimazole 40mg PO daily (7) Overactive bladder: Plan: - Continue oxybutynin 10mg PO daily (8) Hiatal hernia: Plan: - Continue pantoprazole 40mg daily (9) Hypertension: Plan: - Continue lisinopril with hold parameters - mild elevation in Cr to 1.27 - will recheck labs in AM but if still elevated would hold Lisinopril until post-op Plan: Disposition: - Patient pending transfer to [place] for repair; Has accepting physician but awaiting bed availability - Discussed with Dr. Del Toro, [place] hospitalist service on 05/11 - Updated daughter at bedside on 05/11 and will discuss today Admission and Anticipated Discharge Date Admission Date: May 10, 2021 Subjective Reports ongoing L leg pain but states she has a high pain tolerance. Position changes seem to help some. She is tolerating a diet. Denies CP/SOB. Cr slightly elevated at 1.27 but making good urine with Andre in place. She verbalizes no new complaints Review of Systems Review of Systems: All systems reviewed & are unremarkable except as noted in Subjective Physical Exam Physical Exam: PHYSICAL EXAM General Appearance: WDWN in NAD who is A&O x 3 HEENT: Head is normocephalic/atraumatic; Hearing grossly intact; Mucous membranes moist Neck: Supple; Trachea midline; Neg JVD Heart: RRR with murmur loudest at the RUSB Lungs: CTA in all lung faria bilaterally; Respirations unlabored; Neg accessory muscle use Abdomen: Soft, non-tender, non-distended; Positive BS x 4 quadrants Extremities: Neg cyanosis or edema; L hip is externally rotated Neurological: Speech clear; Gross motor/sensory function intact; Neg focal neurologic deficits Psychiatric: Appropriate mood/affect Skin: Normal Color; Warm/Dry Results & Data Results & Data ([facility]) Vital Signs (Past 12 Hours) Vital Signs Temp Pulse Resp BP Pulse Ox 05/12/21 07:17 36.3 C L 68 21 160/74 H 94 PG Care Time/CCT Total # of Minutes Spent Total Time Spent with Patient: Total time spent is greater than 50% in coordination of care (as documented) at patient's floor/unit and/or counseling patient: Coding Level of Care Code 15591 Subseq Hosp Care Lvl 3 Diagnoses Jacqueline-prosthetic femoral shaft fracture M97.8XXA; Z96.649 Fall W19.XXXA Syncope R55 Mild intermittent asthma J45.20 Anxiety F41.9 Hyperthyroidism E05.90 Overactive bladder N32.81 Hiatal hernia K44.9 Hypertension I10
[2021-05-12] MEDS: DOCUSATE SODIUM/SENNA 50/8.6MG TAB PO SCH (20:19)
[2021-05-13 08:32] LABS: Hemoglobin 12.9 g/dL (12.0-16.0); Mean Corpuscular Hemoglobin 31.4 pg (25-34); Mean Corpuscular Hgb Conc 33.1 g/dL (32-36); Mean Corpuscular Volume 94.9 fL (80-100); Mean Platelet Volume 9.7 fL (7.4-10.4); Platelet Count 217 K/uL (130-400); RDW Coefficient of Variation 14.6 % (11.5-14.5); RDW Standard Deviation 50.7 fL (36.4-46.3); Red Blood Count 4.11 M/uL (4.2-5.4); White Blood Count 6.26 K/uL (4.8-10.8)
[2021-05-13 08:56] LABS: BUN Creatinine Ratio 20.7 (10-20); Creatinine Clr Calc Pharmacy 48.7 ml/min; Est GFR (African American) 65.8 ml/min; Est GFR (Non-African American) 56.8 ml/min; Potassium 4.3 mmol/L (3.5-5.1)
[2021-05-13] MEDS: ACETAMINOPHEN 500 MG TAB PO SCH ×3 (09:39→21:06)
[2021-05-13] MEDS: OXYBUTYNIN CHLORIDE XL 5 MG TABCR PO SCH (09:40)
[2021-05-13] MEDS: lisinopril 20 MG TAB PO SCH (09:40)
[2021-05-13] MEDS: PANTOprazole 40 MG TAB PO SCH (09:40)
[2021-05-13] MEDS: methIMAzole 5 MG TABLET PO SCH (09:40)
[2021-05-13] MEDS: HYDROmorphone INJ 0.5 MG/0.5 ML SYR IV PRN ×2 (11:35→21:08)
[2021-05-13] MEDS ORDERED: oxyCODONE HCL IR 5 MG TAB (IMMEDIATE RELEASE) PO PRN (11:54)
[2021-05-13] MEDS ORDERED: CYCLOBENZAPRINE HCL 10 MG TAB PO STA (11:55)
--- NOTE | 2021-05-13 12:49 | Hospitalist Progress Note ---
Date of Service May 13, 2021 Assessment & Plan (1) Jacqueline-prosthetic femoral shaft fracture: Plan: - Imaging shows a L JUDE with acute periprosthetic L femoral fracture with mild displacement - Hemodynamically stable; on the revised cardiac risk score she is a 1 with a 6% risk of /MS/cardiac arrest in a 30 day window given H/O TIA after a trigeminal neuralgia surgery - Pain and bowel regimen - Orthopedics consulted - discussed with team on 05/11 - plan is for transfer to [facility] for further surgical management - still awaiting bed - she is established with Dr. Sam who was going to repair her knee -- Patient would be medically optimized at this point given the acute nature of her fracture. She does not endorse exertional CP or SOB. Discussion of syncope and hyperthyroidism as below -- Discussed with [facility] Hospitalists on 05/11 (2) Fall: Plan: - Presyncopal (see below) - PT/OT post surgery (3) Syncope: Plan: - Pt has had intermittent episodes of pre-syncope in the past. She was evaluated in the ED and found to have an elevated Cr and orthostasis and resolved with fluid resuscitation. In the process of the work-up she did have a Holter monitor placed in December that showed sinus rhythm with rare atrial and ventricular ectopy; no significant pauses/heart block. She was found to have hyperthyroidism and reports she did lose significant weight and wasn't sure why. She was started on Methimazole which TSH is gradually improving. She states most of these episodes have happened with positional changes. - Echo performed in-house reveals EF 55-60%; no regional wall motion abnormalities; mild concentric LVH; moderate valvular aortic stenosis; mild mitral regurgitation; grade I diastolic dysfunction (abnormal relaxation pattern) - Consider orthostatics post-op - Continue Lisinopril - mild elevation in Cr to 1.27 on 05/12 but resolved without intervention - will monitor labs and would hold Lisinopril once bed known until post-op (4) Mild intermittent asthma: Plan: - No exacerbation - Does not require current medications (5) Anxiety: Plan: - Continue Lexapro 10mg HS (6) Hyperthyroidism: Plan: - TSH improving. Not completely corrected but this shouldn't delay her operation -- Reports she lost about 20 lbs prior to discovering this - Continue methimazole 40mg PO daily (7) Overactive bladder: Plan: - Continue oxybutynin 10mg PO daily (8) Hiatal hernia: Plan: - Continue pantoprazole 40mg daily (9) Hypertension: Plan: - Continue lisinopril with hold parameters - mild elevation in Cr to 1.27 - will monitor labs and would hold Lisinopril once bed known until post-op Plan: Disposition: - Patient pending transfer to [facility] for repair - paperwork completed; Has accepting physician but awaiting bed availability - Discussed with Dr. Del Toro, [facility] hospitalist service on 05/11 - Updated daughter at bedside on 05/11 Admission and Anticipated Discharge Date Admission Date: May 10, 2021 Subjective Reports overall doing well. Still with hip pain but she states she has a high pain tolerance. Some muscle cramping and will see if a muscle relaxer will help. She is tolerating a diet without issue. She verbalizes no new complaints. Review of Systems Review of Systems: All systems reviewed & are unremarkable except as noted in Subjective Physical Exam Physical Exam: PHYSICAL EXAM General Appearance: WDWN in NAD who is A&O x 3 HEENT: Head is normocephalic/atraumatic; Hearing grossly intact; Mucous membranes moist Neck: Supple; Trachea midline; Neg JVD Heart: RRR with murmur loudest at the RUSB Lungs: CTA in all lung faria bilaterally; Respirations unlabored; Neg accessory muscle use Abdomen: Soft, non-tender, non-distended; Positive BS x 4 quadrants Extremities: Neg cyanosis or edema; L hip is externally rotated; movement to toes Neurological: Speech clear; Gross motor/sensory function intact; Neg focal neurologic deficits Psychiatric: Appropriate mood/affect Skin: Normal Color; Warm/Dry Results & Data Results & Data ([facility]) Vital Signs (Past 12 Hours) Vital Signs Temp Pulse Resp BP Pulse Ox 05/13/21 07:11 36.5 C 60 17 156/56 H 94 PG Care Time/CCT Total # of Minutes Spent Total Time Spent with Patient: Total time spent is greater than 50% in coordination of care (as documented) at patient's floor/unit and/or counseling patient: Coding Level of Care Code 29895 Subseq Hosp Care Lvl 3 Diagnoses Jacqueline-prosthetic femoral shaft fracture M97.8XXA; Z96.649 Fall W19.XXXA Syncope R55 Mild intermittent asthma J45.20 Anxiety F41.9 Hyperthyroidism E05.90 Overactive bladder N32.81 Hiatal hernia K44.9 Hypertension I10
[2021-05-13] MEDS: DOCUSATE SODIUM/SENNA 50/8.6MG TAB PO SCH (21:07)
[2021-05-14] MEDS: ACETAMINOPHEN 500 MG TAB PO SCH ×3 (08:02→20:44)
[2021-05-14] MEDS: OXYBUTYNIN CHLORIDE XL 5 MG TABCR PO SCH (08:03)
[2021-05-14] MEDS: PANTOprazole 40 MG TAB PO SCH (08:03)
[2021-05-14] MEDS: methIMAzole 5 MG TABLET PO SCH (08:03)
[2021-05-14] MEDS: lisinopril 20 MG TAB PO SCH (08:03)
[2021-05-14] MEDS ORDERED: bisacodyL 5 MG TABEC PO ONE (16:11)
--- NOTE | 2021-05-14 18:17 | Discharge Summary ---
Date of Service date of admission - May 10, 2021 date of discharge - May 14, 2021 Admission HPI Per Admitting Provider Ronald Lagos is an 86 year old female who presents to the ER following a fall and left leg pain. She was at [facility] on the way to the rest room, became dizzy and lost conciseness, falling onto left side around 1pm. She reports normally having orthostasis but mild and she just takes her time. No chest pain, shortness of breath or dizziness on exertion. Following the fall she reports left groin pain, current severity 10/10 despite morphine. XR confirmed a periprosthetic left femoral fracture. She reports having her total hip replacement [address] Velazquez. No head injury. She denies any history of heart attack, reports history of TIA although does not take any antiplatelets for this. Patient case was discussed by ER physician with Dr Benz and recommended admission under medicine with orthopedics on consult. Principal Diagnosis Periprosthetic fracture of the left proximal femur Discharge Exam gen - NAD, pleasant mouth - MM dry face - right facial droop neck - no JVD heart - RRR, s1 s2, 2/6 holosystolic murmur RUSB lungs - CTA b/l abd - softly distended (mild), BS+, NT, no HSM ext - left leg is significantly shortened relative to right leg, externally rotated (mild); mild edema left leg, none on right; pulses 2+ b/l Discharge Data Allergies Allergy/AdvReac Type Severity Reaction Status Date / Time No Known Allergies Allergy Unknown Verified 12/18/20 18:40 Consultations [facility] Procedures Performed Echocardiogram - * EF 55-60% * no regional wall motion abnormalities * mild concentric LVH * moderate valvular aortic stenosis * mild mitral regurgitation * grade I diastolic dysfunction Ordered Studies Cervical Spine CT 05/10/21 14:15 CT cervical spine wo con CT DOSE: 1010.81 mGy.cm CLINICAL HISTORY: 86 years-old Female with syncope and fall. Acute head and neck injury status post syncope with fall COMPARISON: Head CT of same day common brain MRI 11/29/2008. TECHNIQUE: Multiple axial CT images of the cervical spine were obtained without contrast. A dose lowering technique was utilized adhering to the principles of ALARA. FINDINGS: Unchanged deformity of the dens suggestive of a chronic fracture. Multilevel intervertebral disc space narrowing, moderate to severe at C5-C6. Pronounced multilevel spondylitic spurring with posterior disc osteophyte complex formations, most pronounced at C5-C6 and C6 or C7. 4 mm anterolisthesis C4 on C5 is likely secondary to chronic facet arthrosis. There is severe multilevel facet arthropathy. Chronic right occipital calvarial defect. Minimal superior end plate compression deformity without retropulsion involves the T1 vertebral body, likely chronic. Mild extra scoliosis of the cervical thoracic junction. Multilevel neural foraminal narrowing. No pneumothorax. Calcified plaque of the carotid arteries. No prevertebral edema. IMPRESSION: 1. No acute cervical spine fracture or subluxation. 2. Chronic findings as above. ACT 112: Negative or not required by law. The above report was generated using voice recognition software. It may contain grammatical, syntax or spelling errors. Electronically signed by: George Dupont M.D. 05/10/2021 5:10 PM Chest X-Ray 05/10/21 14:15 XR chest 1V not portable CLINICAL HISTORY: syncope and fall. Evaluate cardiopulmonary status COMPARISON STUDY: 12/18/2020 TECHNIQUE: 1 view of the chest FINDINGS: Single frontal view of the chest demonstrates the cardiomediastinal silhouette to be within normal limits. The lungs are clear of alveolar opacities. There is no evidence for pleural effusion. There is no evidence for vascular congestion. There is no acute osseous pathology. IMPRESSION: No acute cardiopulmonary disease. ACT 112: Negative or not required by law. Electronically signed by: Jacob Trinidad M.D. 05/10/2021 3:26 PM Femur X-Ray 05/10/21 14:15 SINGLE VIEW PELVIS; 2 VIEWS LEFT FEMUR CLINICAL HISTORY: Fall. Left leg injury. FINDINGS: 2 AP supine views of the pelvis with AP and crosstable lateral views of the left femur are compared to study dated 10/29/2007. The skeletal structures are osteopenic. Bilateral bipolar hip arthroplasties are in place. There is no radiographic evidence of acute fracture involving the bony pelvis or the right hip. There is a large acute subtrochanteric periprosthetic fracture of the left proximal femur with overlying soft tissue edema. Fracture lucency extends extends from the subtrochanteric region to the tip of the arthroplasty stem in the mid femoral shaft. There is mild displacement of the proximal fragments. The distal left femur appears intact. A left knee arthroplasty is in place. IMPRESSION: 1. Large periprosthetic fracture of the left proximal femur as detailed above. 2. No additional fracture is seen involving the bony pelvis or the right proximal femur. Electronically signed by: Gregorio Marin M.D. 05/10/2021 3:[address] 05/10/21 14:15 CT head/brain wo con CLINICAL HISTORY: 86 years-old Female with syncope and fall. Acute head injury status post syncope with fall TECHNIQUE: Multiple axial CT images of the head were obtained without contrast. A dose lowering technique was utilized adhering to the principles of ALARA. COMPARISON: CT cervical spine of same day, head CT 12/18/2020 FINDINGS: No acute intracranial hemorrhage, midline shift, intracranial mass, hydrocephalus, territorial ischemia or abnormal extra-axial collection. Age- related involutional changes. White matter hypodensities suggest chronic microvascular ischemic disease. Artifact from the postoperative changes within the right orbit again limits the study. Bilateral lens repair. The calvarium is intact. The paranasal sinuses, mastoid air cells, and middle ear cavities are clear. IMPRESSION: No acute intracranial abnormality or calvarial fracture. ACT 112: Negative or not required by law. The above report was generated using voice recognition software. It may contain grammatical, syntax or spelling errors. Electronically signed by: George Dupont M.D. 05/10/2021 5:05 PM Pelvis X-Ray 05/10/21 14:15 SINGLE VIEW PELVIS; 2 VIEWS LEFT FEMUR CLINICAL HISTORY: Fall. Left leg injury. FINDINGS: 2 AP supine views of the pelvis with AP and crosstable lateral views of the left femur are compared to study dated 10/29/2007. The skeletal structures are osteopenic. Bilateral bipolar hip arthroplasties are in place. There is no radiographic evidence of acute fracture involving the bony pelvis or the right hip. There is a large acute subtrochanteric periprosthetic fracture of the left proximal femur with overlying soft tissue edema. Fracture lucency extends extends from the subtrochanteric region to the tip of the arthroplasty stem in the mid femoral shaft. There is mild displacement of the proximal fragments. The distal left femur appears intact. A left knee arthroplasty is in place. IMPRESSION: 1. Large periprosthetic fracture of the left proximal femur as detailed above. 2. No additional fracture is seen involving the bony pelvis or the right proximal femur. Electronically signed by: Gregorio Marin M.D. 05/10/2021 3:[address] 05/11/21 07:17 CT hip LT wo con HISTORY: 86 years-old Female Assess periprosthetic femoral fracture acute left- sided hip pain without reported trauma COMPARISON: Left femur radiographs 05/10/2021 TECHNIQUE: Multiple axial CT images of the left hip were obtained without the use of IV contrast. A dose lowering technique was used consistent with the principals of ALARA. FINDINGS: Left hip total joint arthroplasty. Artifact from the hardware limits the study. There is an acute periprosthetic fracture of the subtrochanteric proximal femoral diaphysis with the fracture fragment displaced medially 1.5 cm. A subtle horizontal fracture component extends along the length of the femoral stem and extends into the anterior cortex just distal to the stem on image 413 series 3. No dislocation or additional fracture identified. No acute process of the imaged intrapelvic structures. No large intramuscular hematoma of the thigh or hip identified. IMPRESSION: 1. Left hip total joint arthroplasty. Artifact from the hardware limits the study. 2. Acute periprosthetic left femoral fracture with mild displacement redemonstrated as above. ACT 112: Negative or not required by law. The above report was generated using voice recognition software. It may contain grammatical, syntax or spelling errors. Electronically signed by: George Dupont M.D. 05/11/2021 10:52 AM Hospital Course (1) Jacqueline-prosthetic femoral shaft fracture: Imaging showed a L JUDE with acute periprosthetic Left femoral fracture with mild displacement. [facility] - they advised transfer to [facility] for surgical management. She is established with Dr. Juan Sam who was going to repair her left knee in the future. She was kept on bed rest and given pain control while awaiting transfer. (2) Fall: 2nd to Presyncopal episode as below (3) Syncope: Pt has had intermittent episodes of pre-syncope in the past. As part of her work-up she underwent Holter Monitoring in December 2020 that showed sinus rhythm with rare atrial and ventricular ectopy; no significant pauses/heart block. She was also found to have hyperthyroidism and reports she lost significant weight (20 pounds) from such. Since that time she has been treated with methimazole and hyperthyroidism is coming under control. Most recent TSH was 0.067 early this month. Echo was completed this admission with findings as above. She remained hemodynamically stable throughout her stay here. (4) Mild intermittent asthma: No exacerbation during this stay. (5) Anxiety: Continue Lexapro 10mg HS. (6) Hyperthyroidism: TSH improving. Not completely corrected but this shouldn't delay her operation. Most recent Free T4 in early April was wnl. Reports she lost about 20 lbs prior to discovering this diagnosis. Continue methimazole 40mg PO daily. (7) Overactive bladder: Continue oxybutynin 10mg PO daily. (8) Hiatal hernia: Continue pantoprazole 40mg daily. (9) Hypertension: Continue lisinopril. (10) Severe protein-calorie malnutrition: 20 pounds of weight loss 2nd to hyperthyroidism. Hyperthyroidism now coming under control and weight stabilizing. (11) History of trigeminal neuralgia: (12) History of TIA (transient ischemic attack): Not on aspirin or other agent for secondary prevention - uncertain why. If no contraindication should be on aspirin at minimum. Total Time Total Time Spent Total Time Spent (In Minutes): 40 Discharge Plan Discharge Items Patient Disposition: Transfer Acute Care Hospital Reason For Visit: PERIPROSTHETIC LEFT FEMORAL FRACTURE Discharge Diagnosis: Periprosthetic L Femoral Fracture Activity: Per Instructions section Weightbearing: Left non-weightbearing Non-emergency contact: Primary Care Provider and Surgeon Call non-emergency contact if: you have any medication questions, your symptoms worsen and you have a fever Follow-up/Referrals: Casey Enriquez [Primary Care Provider] - Diet: Regular Addtl Attending Provider Instructions: Jacqueline-prosthetic femoral shaft fracture: - Imaging shows a L JUDE with acute periprosthetic L femoral fracture with mild displacement - Hemodynamically stable; on the revised cardiac risk score she is a 1 with a 6% risk of /NH/cardiac arrest in a 30 day window given H/O TIA after a trigeminal neuralgia - Pain and bowel regimen - Orthopedics consulted - discussed with team on 05/11 - plan is for transfer to [facility] for further surgical management -- she is established with Dr. Sam as she was anticipated a L knee repair but was delayed due to her TSH finding as below -- Patient would be medically optimized at this point given the acute nature of her fracture. She does not endorse exertional CP or SOB. Discussion of syncope and hyperthyroidism as below -- Discussed with [facility] Hospitalists on 05/11 Fall: - Presyncopal (see below) - PT/OT post surgery Syncope: - Pt has had intermittent episodes of pre-syncope in the past. She was evaluated in the ED and found to have an elevated Cr and orthostasis and resolved with fluid resuscitation. In the process of the work-up she did have a Holter monitor placed in December that showed sinus rhythm with rare atrial and ventricular ectopy; no significant pauses/heart block. She was found to have hyperthyroidism and reports she did lose significant weight and wasn't sure why prior to the diagnosis. She was started on Methimazole which TSH is gradually improving. She states most of these episodes have happened with positional changes. - Echo performed in-house reveals EF 55-60%; no regional wall motion abnormalities; mild concentric LVH; moderate valvular aortic stenosis; mild mitral regurgitation; grade I diastolic dysfunction (abnormal relaxation pattern) - Consider orthostatics post-op - Continue Lisinopril - mild elevation in Cr to 1.27 but resolved with no intervention - BP is largely running 150s systolic but once a bed is found could hold Lisinopril pre-operatively to reduce risk of renal impairment post-op Mild intermittent asthma: - No exacerbation - Does not require current medications Anxiety: - Continue Lexapro 10mg HS Hyperthyroidism: - TSH improving. Not completely corrected but this shouldn't delay her operation -- Reports she lost about 20 lbs prior to discovering this - Continue methimazole 40mg PO daily Overactive bladder: - Continue oxybutynin 10mg PO daily Hiatal hernia: - Continue pantoprazole 40mg daily Hypertension: - Continue lisinopril with hold parameters - mild elevation in Cr to 1.27 on 05/12 but resolved without intervention (currently at 0.92) - will monitor while in-house - would hold Lisinopril until post-op once bed is confirmed Disposition: - Patient pending transfer to [facility] for repair; Has accepting physician but awaiting bed availability - Discussed with Dr. Del Toro, [facility] hospitalist service on 05/11 and provided vitals update on 05/13 - will need COVD swab prior to transfer Pending Studies at Discharge: No Stand-Alone Forms: [facility] Skilled Items Patient informed of condition?: Yes DNR: No Discharge Level of Care: Other Communicable Disease: No Discharge Prognosis: Stable Lines: Peripheral IV Urinary Catheter: Yes Medications and DC Order Prescriptions: Continued oxybutynin chloride 10 mg tablet extended release 24hr 10 mg PO QAM RF: 0 lisinopril 20 mg tablet 20 mg PO QAM RF: 0 pantoprazole 40 mg tablet,delayed release (DR/EC) 40 mg PO QAM RF: 0 escitalopram oxalate 10 mg tablet 10 mg PO HS RF: 0 acetaminophen [Tylenol Extra Strength] 500 mg Tablet 500 mg PO Q6H PRN (Reason: Pain) RF: 0 methimazole 10 mg tablet 40 mg PO DAILY RF: 0 Discharge Orders: Discharge Order (Routine); Ordered 05/14/21 Ordered By: Armando Damon Admission Data Admit Date/Time: 05/10/21 17:49 Attending Provider: Armando Damon Admit Provider: Armando Shane Primary Care Provider: Casey Enriquez Other Providers: Armando Shane ; Eliot Benz Other Interventions: Discharge Summary Assessment (RN) Last Done: 05/14/21 22:26 Coding Level of Care Code D/C DAY MANAGEMENT >30 MINS Diagnoses Jacqueline-prosthetic femoral shaft fracture M97.8XXA; Z96.649 Fall W19.XXXA Syncope R55 Mild intermittent asthma J45.20 Anxiety F41.9 Hyperthyroidism E05.90 Overactive bladder N32.81 Hiatal hernia K44.9 Hypertension I10 Severe protein-calorie malnutrition E43 History of trigeminal neuralgia Z86.69 History of TIA (transient ischemic attack) Z86.73
[2021-05-14] MEDS: DOCUSATE SODIUM/SENNA 50/8.6MG TAB PO SCH (20:44)
[2021-05-14] MEDS ORDERED: POLYETHYLENE (MIRALAX) 17 GM PACK PO SCH (21:00)
[2021-05-14] MEDS: HYDROmorphone INJ 0.5 MG/0.5 ML SYR IV PRN (23:08)
== END 2021-05-14 23:33 | disposition short-term general hospital (02) | DRG 534 ==
LOC: ED 13:25 → 3N 17:49 → SUATTDRO 17:49 → 3N 22:35
DX: Z86.73 Personal history of transient ischemic attack (TIA), and cerebral infarction without residual deficits; E05.90 Thyrotoxicosis, unspecified without thyrotoxic crisis or storm; S72.302A Unspecified fracture of shaft of left femur, initial encounter for closed fracture; Y92.511 Restaurant or cafe as the place of occurrence of the external cause; Z96.653 Presence of artificial knee joint, bilateral; N32.81 Overactive bladder; J45.20 Mild intermittent asthma, uncomplicated; M97.8XXA Periprosthetic fracture around other internal prosthetic joint, initial encounter; Z96.642 Presence of left artificial hip joint; W19.XXXA Unspecified fall, initial encounter; F41.9 Anxiety disorder, unspecified; R55 Syncope and collapse; Z96.643 Presence of artificial hip joint, bilateral; I10 Essential (primary) hypertension

== ENCOUNTER 2022-04-26 20:22 | Inpatient (IN) ==
[2022-04-26 21:28] LABS: BUN Creatinine Ratio 28.3 (10-20); C Reactive Protein 1.33 mg/dl (0-0.5); Creatinine Clr Calc Pharmacy 34.9 ml/min; Est GFR (African American) 44.3 ml/min; Est GFR (Non-African American) 38.2 ml/min; Potassium 4.3 mmol/L (3.5-5.1)
[2022-04-26 21:41] LABS: Basophils # (auto) 0.07 K/uL (0-0.2); Basophils % (auto) 0.9 %; Eosinophils # (auto) 0.43 K/uL (0-0.50); Eosinophils % (auto) 5.7 %; Hematocrit (blood only) 36.2 % (34.1-44.9); Hemoglobin 12.2 g/dl (12.0-16.0); Immature Granulocytes # (auto) 0.03 K/uL (0.00-0.02); Immature Granulocytes % (auto) 0.4 %; Lymphocytes # (auto) 1.35 K/uL (1.2-3.4); Mean Corpuscular Hemoglobin 33.1 pg (25.0-34.0); Mean Corpuscular Hgb Conc 33.7 g/dL (32.0-36.0); Mean Corpuscular Volume 98.1 fL (80.0-100.0); Mean Platelet Volume 9.8 fL (9.4-12.3); Monocytes # (auto) 0.87 K/uL (0.24-0.82); Monocytes % (auto) 11.6 %; Neutrophils # (auto) 4.75 K/uL (1.4-6.5); Neutrophils % (auto) 63.4 %; Platelet Count 266 K/uL (130-400); RDW Standard Deviation 50.3 fL (36.4-46.3); Red Blood Count 3.69 M/uL (3.93-5.22)
--- NOTE | 2022-04-26 22:56 | Emergency Department Note ---
Impression & Plan Postoperative wound infection, Cellulitis of left lower extremity ED Provider Note INFORMANT: Patient ED PROVIDER(S): Esau Lin MD CHIEF COMPLAINT: Wound infection PLAN: Disposition: Admitted Condition: Good Outpatient prescription management: none Referral: None MEDICAL DECISION MAKING: Patient presented because of concerns about wound infection. On physical examination clearly she has a significant left lower extremity cellulitis. Patient had blood work and blood cultures obtained. X-ray imaging was performed and reveals her orthopedic hardware but no other gross acute abnormalities. She had an unremarkable CBC but her inflammatory markers were elevated. I did con sult with [facility] orthopedics here in [place], Dr. Morrison and after discussion of the situation he recommended consultation with [facility] as that is where she had her surgery done. I did place a call to [place] through their consult network. There was some delay in obtaining consultation on their part. I was able discussed the case with Dr. Caputo. She was covering for Dr. Sam. Given the physical findings and laboratory testing she felt antibiotics were reasonable initially recommending oral antibiotics. I did discuss that the extent of the cellulitis would warrant IV antibiotics even if this was not postoperative and she felt admission here for IV antibiotics and evaluation would be reasonable. The patient was ordered IV cefepime and vancomycin empirically. There is no drainage for swabbing. Currently she does not have a significant amount of joint effusion and her range of motion is decent. She does not have significant pain in the knee joint with range of motion. Consultation was made with Dr. Chris Helton of the [facility] service. Patient was evaluated in the ER for further management. Triage Nursing notes reviewed and agree them. Vital Signs: reviewed and remarkable for borderline tachycardia Differential diagnosis: Cellulitis, abscess, MRSA infection, DVT, necrotizing fasciitis, dermatitis, drug eruption, allergic reaction, as well as other pathologies. Diagnostics interpreted by me: ECG: none Cardiac Monitoring: Cardiac monitoring ordered by me: The patient was placed on continuous cardiac monitoring and observed. It revealed a normal sinus rhythm at 95 beats per minute without ectopy or evidence of dysrhythmia. Imaging studies: X-ray imaging as above. HPI: The patient is a 87year old female who presents to the Emergency Room with complaints of postop wound infection. This started about 3 days ago and is located at the inferior aspect of her left knee incision extending distally. The patient also notes the following associated symptoms, verde pain, redness, warm. The patient has taken no medication for relieving factors. Current pain is rated as 6/10. Pt denies LOC, headache, fevers, chills, diaphoresis, visual changes, neck pain, chest pain, breathing difficulties, nausea, vomiting, abdominal pain, back pain, urinary symptoms, numbness, weakness, lymphadenopathy, rash, or other complaints. ROS: See above HPI for pertinent positives & negatives. A total of 10 systems reviewed and were otherwise negative. PAST MEDICAL HISTORY:See Below , hypothyroidism, hypertension PAST SURGICAL HISTORY:See Below, left hip replacement, left knee replacement FAMILY HISTORY:See Below SOCIAL HISTORY:See Below, retired HOME MEDICATIONS:See Below ALLERGIES:See Below VITALS:See Below PHYSICAL EXAMINATION: GENERAL: Awake, alert, well-appearing, in no distress HENT: Normocephalic, atraumatic. Oropharynx unremarkable. EYES: Normal conjunctiva. Sclera non-icteric. NECK: Inspection normal. Non-tender. Supple. No nuchal rigidity. FROM. No masses. RESPIRATORY: Clear to auscultation. No wheezes. No rales. Normal respiratory effort. CARDIAC: Normal rate. Normal rhythm. No murmurs. No rubs. Extremities warm and well perfused. Pulses equal. No JVD. GI: Soft, non-distended. No tenderness to palpation. No rebound or guarding. No masses. RECTAL: Deferred. MUSCULOSKELETAL: Atraumatic. Chest examination reveals no tenderness. The back is symmetrical on inspection without obvious abnormality. There is no CVA tenderness to palpation. No joint edema. LOWER EXTREMITIES: There is erythema, warmth and tenderness of the anterior left lower leg from the ankle up to the knee concerning for cellulitis. This involves and appears to originate from the inferior aspect of the healing surgical scar. There is no dehiscence. Range of motion is relatively well-pre served in the left knee. There is no significant sign of joint effusion and no medial or lateral joint line tenderness. NEURO: Normal sensorium. No sensory or motor deficits noted. SKIN: No rash or jaundice noted. Esau Lin MD Past Med/Surg History Medical History (Updated 04/26/22 @ 22:56 by Esau Lin MD) Anxiety Hiatal hernia History of TIA (transient ischemic attack) History of trigeminal neuralgia s/p surgery Hypertension Hyperthyroidism under Dr Barrington Hamilton Overactive bladder Status post bilateral knee replacements Surgical History History of bilateral hip replacements History of cholecystectomy History of eye surgery Gold weight placed on left eye to help with closing History of hysterectomy with bilateral oophorectomy History of tonsillectomy Social History Smoking Status: Never smoker Hx Substance Use: No Preferred Language: Andorran Communication Ability: Effective Train Caller Required: No Beliefs That Will Affect Care: None marital status: / Current Living Situation: Alone Current Living Situation Comment: How many Children do You have: 1 Feels Safe at Home: Yes Assistive Devices: None Allergies Allergies Allergy/AdvReac Type Severity Reaction Status Date / Time No Known Allergies Allergy Unknown Verified 12/18/20 18:40 Home Meds Home Medications Medication Instructions Recorded Confirmed acetaminophen 500 mg tablet 1,000 mg PO Q6H PRN Pain 12/18/20 04/27/22 (Tylenol Extra Strength) escitalopram oxalate 10 mg tablet 10 mg PO HS 12/18/20 04/27/22 lisinopril 20 mg tablet 20 mg PO QAM 12/18/20 04/26/22 pantoprazole 40 mg tablet,delayed 40 mg PO QAM 12/18/20 04/26/22 release methimazole 10 mg tablet 10 mg PO DAILY 05/10/21 04/26/22 amlodipine 5 mg tablet 5 mg PO DAILY 04/26/22 04/26/22 bupropion HCl 150 mg 24 hr tablet, 150 mg PO DAILY 04/26/22 04/27/22 extended release celecoxib 200 mg capsule 200 mg PO UD 04/26/22 04/26/22 oxybutynin chloride 15 mg 15 mg PO DAILY 04/26/22 04/26/22 tablet,extended release 24 hr tramadol 50 mg tablet 50 mg PO UD PRN Pain 04/26/22 04/26/22 Results & Data (ED) Vital Signs Vital Signs - 24 hr 04/26/22 20:29 04/26/22 23:00 Temperature 37.1 C Temperature Source Temporal Artery Scan Pulse Rate 107 H Pulse Rate [Finger] 78 Pulse Rhythm [Finger] Regular Pulse Strength [Finger] Normal Respiratory Rate 18 18 Respiratory Effort / Characteristics Non-Labored Spontaneous Respiratory Depth Normal Normal Respiratory Pattern Regular Blood Pressure 180/74 H Blood Pressure [Right Arm] 178/65 H Blood Pressure Mean 109 Blood Pressure Mean [Right Arm] 102 Blood Pressure Position [Right Arm] Sitting Pulse Oximetry 94 98 Oxygen Delivery Method Room Air Room Air Sepsis Recent Fever Within 48 Hours No Sepsis New/Unexplained Change in Mental Status N/A Sepsis Action Taken by Nursing No Action Required Laboratory Data Result diagrams: 04/26/22 20:53 04/26/22 20:53 Lab Results 04/26/22 04/26/22 04/26/22 Range/Units 20:53 20:53 20:53 WBC 7.50 (4.8-10.8) K/ul RBC 3.69 L (3.93-5.22) M/uL Hgb 12.2 (12.0-16.0) g/dl Hct 36.2 (34.1-44.9) % MCV 98.1 (80.0-100.0) fL MCH 33.1 (25.0-34.0) pg MCHC 33.7 (32.0-36.0) g/dL RDW Std Deviation 50.3 H (36.4-46.3) fL RDW Coeff of [place] 14.0 (11.5-14.5) % Plt Count 266 (130-400) K/uL MPV 9.8 (9.4-12.3) fL Immature Gran % (Auto) 0.4 % Neut % (Auto) 63.4 % Lymph % (Auto) 18.0 % [place] % (Auto) 11.6 % Eos % (Auto) 5.7 % Baso % (Auto) 0.9 % Neut # (Auto) 4.75 (1.4-6.5) K/uL Lymph # (Auto) 1.35 (1.2-3.4) K/uL [place] # (Auto) 0.87 H (0.24-0.82) K/uL Eos # (Auto) 0.43 (0-0.50) K/uL Baso # (Auto) 0.07 (0-0.2) K/uL Immature Gran # (Auto) 0.03 H (0.00-0.02) K/uL ESR 33 H (0-30) mm/hr Sodium 138 (136-145) mmol/L Potassium 4.3 (3.5-5.1) mmol/L Chloride 106 (98-107) mmol/L Carbon Dioxide 25 (21-32) mmol/L Anion Gap 7 (3-11) BUN 36 H (6-23) mg/dl Creatinine 1.27 H (0.6-1.2) mg/dl Est Cr Clr Drug Dosing 34.9 ml/min Est GFR ( Amer) 44.3 ml/min Est GFR (Non-Af Amer) 38.2 ml/min BUN/Creatinine Ratio 28.3 H (10-20) Glucose 100 H (70-99(Fasting)) mg/dl Calcium 9.0 (8.5-10.1) mg/dl C-Reactive Protein 1.33 H (0-0.5) mg/dl Procalcitonin (0-0.5) ng/ml 04/26/22 Range/Units 20:53 WBC (4.8-10.8) K/ul RBC (3.93-5.22) M/uL Hgb (12.0-16.0) g/dl Hct (34.1-44.9) % MCV (80.0-100.0) fL MCH (25.0-34.0) pg MCHC (32.0-36.0) g/dL RDW Std Deviation (36.4-46.3) fL RDW Coeff of [place] (11.5-14.5) % Plt Count (130-400) K/uL MPV (9.4-12.3) fL Immature Gran % (Auto) % Neut % (Auto) % Lymph % (Auto) % [place] % (Auto) % Eos % (Auto) % Baso % (Auto) % Neut # (Auto) (1.4-6.5) K/uL Lymph # (Auto) (1.2-3.4) K/uL [place] # (Auto) (0.24-0.82) K/uL Eos # (Auto) (0-0.50) K/uL Baso # (Auto) (0-0.2) K/uL Immature Gran # (Auto) (0.00-0.02) K/uL ESR (0-30) mm/hr Sodium (136-145) mmol/L Potassium (3.5-5.1) mmol/L Chloride (98-107) mmol/L Carbon Dioxide (21-32) mmol/L Anion Gap (3-11) BUN (6-23) mg/dl Creatinine (0.6-1.2) mg/dl Est Cr Clr Drug Dosing ml/min Est GFR ( Amer) ml/min Est GFR (Non-Af Amer) ml/min BUN/Creatinine Ratio (10-20) Glucose (70-99(Fasting)) mg/dl Calcium (8.5-10.1) mg/dl C-Reactive Protein (0-0.5) mg/dl Procalcitonin < 0.05 (0-0.5) ng/ml Administered Medications Vancomycin HCl 2,000 mg/ (Sodium Chloride) 540 mls @ 200 mls/hr IV NOW ONE Stop: 04/27/22 02:26 Last Admin: 04/27/22 00:08 Dose: 200 mls/hr Documented By: YOHANA Discontinued Medications Cefepime HCl (Maxipime) 2,000 mg in 20 mls @ 5 mls/min IV NOW STA; Protocol Stop: 04/26/22 23:48 Last Admin: 04/27/22 00:04 Dose: 5 mls/min Documented By: YOHANA Discharge Plan Visit Data Chief Complaint: Infection, Wound Stated Complaint: POSSIBLE INFECTION IN STITCHES ON L KNEE ED Provider: Esau Lin Discharge Problem: Postoperative wound infection, Cellulitis of left lower extremity Forms Stand Alone Forms: My [facility] Prescriptions Prescriptions: No Action lisinopril 20 mg tablet 20 mg PO QAM pantoprazole 40 mg tablet,delayed release (DR/EC) 40 mg PO QAM escitalopram oxalate 10 mg tablet 10 mg PO HS acetaminophen [Tylenol Extra Strength] 500 mg Tablet 1,000 mg PO Q6H PRN (Reason: Pain) methimazole 10 mg tablet 10 mg PO DAILY oxybutynin chloride 15 mg tablet extended release 24hr 15 mg PO DAILY amlodipine 5 mg tablet 5 mg PO DAILY celecoxib 200 mg capsule 200 mg PO UD tramadol 50 mg tablet 50 mg PO UD PRN (Reason: Pain) bupropion HCl 150 mg tablet extended release 24 hr 150 mg PO DAILY Referrals Referrals: Casey Enriquez [Primary Care Provider] -
[2022-04-26] MEDS ORDERED: CEFEPIME 2,000 MG/20 ML VIAL IV STA (23:45)
[2022-04-26] MEDS ORDERED: VANCOMYCIN HCL 2,000 MG in SODIUM CHLORIDE 0.9% 500 ML IV ONE (23:45)
[2022-04-26] MEDS ORDERED: VANCOMYCIN CONSULT ACTIVE PRN (23:45)
--- NOTE | 2022-04-27 01:50 | History & Physical Report ---
Date of Service April 27, 2022 Assessment & Plan (1) Cellulitis of left lower extremity: Plan: Patient is an 87 yo with PMHx of recent L knee replacement, HTN, anxiety, hyperthyroidism admitted for LLE cellulitis. Cellulitis of LLE s/p L knee surgery/post-op wound infection - Received vancomycin and cefepime in ED - Continue on admission pending result of MRSA nares - No leukocytosis on admission labs - Patient hemodynamically stable and has been afebrile - Tylenol prn pain/fever - Wells criteria score 3 -- LLE doppler oredered on admission to evaluate for DVT which was negative - Blood cx ordered, pending - Continue to trend CBC - PT ordered ROBERT - Patient with mild ROBERT, Cr 1.27 - Suspect secondary to decreased po intake - IVF for hydration - Trend BMP in AM Hypertension - Continue home amlodipine - Hold lisinopril given current ROBERT Anxiety - Continue home wellbutrin and lexapro Hyperthyroidism - Continue home methimazole Dispo: admit to [facility]: heart healthy diet with LR at 125 cc/hr Code status: Full code (2) Postoperative wound infection: (3) Hypertension: (4) Hyperthyroidism: (5) Anxiety: (6) Mild intermittent asthma: (7) History of trigeminal neuralgia: (8) History of TIA (transient ischemic attack): (9) ROBERT (acute kidney injury): History of Present Illness Primary Care Provider: Casey Enriquez Charles Lagos is an 87 yo female with PMHx of trigeminal neualgia, TIA, HTN, hyperthyroidism, anxiety, asthma, hip replacement, and bilateral knee replacements presenting to the hospital 04/26/22 due to cellulitis of the LLE s/p left knee replacement. Patient had revision of left knee replacement just over 1 month ago (03/20/22) at [facility]; she was discharged to home 1-2 days post-op and states that she has been doing well since discharge. Patient has been doing home PT. She noted 1-2 weeks post-op that she had some increased swelling of the LLE, specifically the lateral aspect of the lower leg and the verde. Within the past couple of days, patient also developed erythema at the distal aspect of the incision that has spread more inferiorly to the mid calf. Patient also complains of pain to touch of the leg. She denies fever, chills, abd pain, nausea, vomiting, diarrhea, constipation, or urinary symptoms. She has been eating well and sleeping well. Patient notes that she lives alone. She feels that she has good family and friend support. Grandsons do shopping for her. She cooks, cleans, and manages finances. Patient has 2 steps to get to a landing and then 1 step into the home. First floor living. In the ER, patient found to have extensive cellulitis of the LLE with mildly elevated inflammtory markers including CRP 1.33 and ESR 33. Procal negative. No leukocytosis. No anemia. Mild ROBERT with Cr 1.27 and GFR 44.3. She is COVID negative. ER physician spoke with on-call ortho for this hospital as well as on-call ortho at [facility] where patient had knee replacement performed and ultimately admission recommended here for IV abx therapy given the cellulitis. Allergies Allergy/AdvReac Type Severity Reaction Status Date / Time No Known Allergies Allergy Unknown Verified 04/27/22 00:13 Home Medications Medication Instructions Recorded Confirmed Type acetaminophen 500 mg tablet 1,000 mg PO Q6H PRN Pain 12/18/20 04/27/22 History (Tylenol Extra Strength) escitalopram oxalate 10 mg tablet 10 mg PO HS 12/18/20 04/27/22 History lisinopril 20 mg tablet 20 mg PO QAM 12/18/20 04/27/22 History pantoprazole 40 mg tablet,delayed 40 mg PO QAM 12/18/20 04/27/22 History release methimazole 10 mg tablet 10 mg PO QAM 05/10/21 04/27/22 History amlodipine 5 mg tablet 5 mg PO QAM 04/26/22 04/27/22 History bupropion HCl 150 mg 24 hr tablet, 150 mg PO QAM 04/26/22 04/27/22 History extended release celecoxib 200 mg capsule 200 mg PO UD 04/26/22 04/27/22 History oxybutynin chloride 15 mg 15 mg PO QAM 04/26/22 04/27/22 History tablet,extended release 24 hr tramadol 50 mg tablet 50 mg PO Q8 PRN Pain 04/26/22 04/27/22 History Past Med/Surg History Medical History (Updated 04/27/22 @ 04:39 by Roxanne Oh DO) Anxiety Hiatal hernia History of TIA (transient ischemic attack) History of trigeminal neuralgia s/p surgery Hypertension Hyperthyroidism under Dr Barrington Hamilton Overactive bladder Status post bilateral knee replacements Surgical History History of bilateral hip replacements History of cholecystectomy History of eye surgery Gold weight placed on left eye to help with closing History of hysterectomy with bilateral oophorectomy History of tonsillectomy Social History Smoking Status: Never smoker Second Hand Exposure: No; Do You Dip or Chew Tobacco: No; Tobacco Cessation Education Requested by Patient: No Hx Alcohol Use: Yes Alcohol type: wine Hx Substance Use: No Preferred Language: Lao Communication Ability: Effective Volleyball Commentator Required: Yes Beliefs That Will Affect Care: None marital status: / Current Living Situation: Alone Current Living Situation Comment: Grandsons do her grocery shopping and she has good neighbors How many Children do You have: 1 Other Information That Helps Us Care for You: No Feels Safe at Home: Yes Safety Concerns: Feels Safe At This Time Assistive Devices: Cane Review of Systems Review of Systems: See HPI Physical Exam Physical Exam: GENERAL: No acute distress. Well developed and well nourished. Vital signs reviewed as above. EYES: EOMI. Anicteric sclerae. HENT: Moist mucous membranes. RESPIRATORY: Clear to auscultation bilaterally. No wheezing, rales, or rhonchi. CARDIOVASCULAR: Regular rate and rhythm. + murmurs. No JVD. ABDOMEN: Soft, non-tender and non-distended. Normal bowel sounds. LEFT LOWER EXTREMITY: LLE edema. Healing incision over left knee with scab at distal aspect; no discharge from incision. Significant erythema with warmth and tenderness to palpation. There is + tenderness to calf squeeze. + tenderness to light palpation of verde. 5/5 strength with flexion of right hip, extension of left hip, and flexion/extension of left ankle. RIGHT LOWER EXTREMITY: No gross swelling. No rash. No erythema. No edema. No warmth. SKIN: Warm, dry. See above. NEUROLOGIC: A/O x3. Normal speech. CN V and VII impaired on right (decreased sensation, right lip with incomplete closure and unable to fully smile) which is chronic s/p trigeminal neuralgia and TIA. PSYCHIATRIC: Cooperative. Appropriate mood and affect. Results & Data Results & Data ([facility]) Vital Signs (Past 12 Hours) Vital Signs Temp Pulse Pulse Resp BP BP Pulse Ox 04/26/22 23:00 78 18 178/65 H 98 04/26/22 20:29 37.1 C 107 H 18 180/74 H 94 O2 Del Method 04/26/22 23:00 Room Air 04/26/22 20:29 Room Air Laboratory Results 04/27/22 04/26/22 04/26/22 Range/Units 00:44 20:53 20:53 WBC (4.8-10.8) K/ul RBC (3.93-5.22) M/uL Hgb (12.0-16.0) g/dl Hct (34.1-44.9) % MCV (80.0-100.0) fL MCH (25.0-34.0) pg MCHC (32.0-36.0) g/dL RDW Std Deviation (36.4-46.3) fL RDW Coeff of [place] (11.5-14.5) % Plt Count (130-400) K/uL MPV (9.4-12.3) fL Immature Gran % (Auto) % Neut % (Auto) % Lymph % (Auto) % [place] % (Auto) % Eos % (Auto) % Baso % (Auto) % Neut # (Auto) (1.4-6.5) K/uL Lymph # (Auto) (1.2-3.4) K/uL [place] # (Auto) (0.24-0.82) K/uL Eos # (Auto) (0-0.50) K/uL Baso # (Auto) (0-0.2) K/uL Immature Gran # (Auto) (0.00-0.02) K/uL ESR (0-30) mm/hr Sodium 138 (136-145) mmol/L Potassium 4.3 (3.5-5.1) mmol/L Chloride 106 (98-107) mmol/L Carbon Dioxide 25 (21-32) mmol/L Anion Gap 7 (3-11) BUN 36 H (6-23) mg/dl Creatinine 1.27 H (0.6-1.2) mg/dl Est Cr Clr Drug Dosing 34.9 ml/min Est GFR ( Amer) 44.3 ml/min Est GFR (Non-Af Amer) 38.2 ml/min BUN/Creatinine Ratio 28.3 H (10-20) Glucose 100 H (70-99(Fasting)) mg/dl Calcium 9.0 (8.5-10.1) mg/dl C-Reactive Protein 1.33 H (0-0.5) mg/dl Procalcitonin < 0.05 (0-0.5) ng/ml SARS-CoV-2, RNA, NAAT NEGATIVE (NEGATIVE) 04/26/22 04/26/22 Range/Units 20:53 20:53 WBC 7.50 (4.8-10.8) K/ul RBC 3.69 L (3.93-5.22) M/uL Hgb 12.2 (12.0-16.0) g/dl Hct 36.2 (34.1-44.9) % MCV 98.1 (80.0-100.0) fL MCH 33.1 (25.0-34.0) pg MCHC 33.7 (32.0-36.0) g/dL RDW Std Deviation 50.3 H (36.4-46.3) fL RDW Coeff of [place] 14.0 (11.5-14.5) % Plt Count 266 (130-400) K/uL MPV 9.8 (9.4-12.3) fL Immature Gran % (Auto) 0.4 % Neut % (Auto) 63.4 % Lymph % (Auto) 18.0 % [place] % (Auto) 11.6 % Eos % (Auto) 5.7 % Baso % (Auto) 0.9 % Neut # (Auto) 4.75 (1.4-6.5) K/uL Lymph # (Auto) 1.35 (1.2-3.4) K/uL [place] # (Auto) 0.87 H (0.24-0.82) K/uL Eos # (Auto) 0.43 (0-0.50) K/uL Baso # (Auto) 0.07 (0-0.2) K/uL Immature Gran # (Auto) 0.03 H (0.00-0.02) K/uL ESR 33 H (0-30) mm/hr Sodium (136-145) mmol/L Potassium (3.5-5.1) mmol/L Chloride (98-107) mmol/L Carbon Dioxide (21-32) mmol/L Anion Gap (3-11) BUN (6-23) mg/dl Creatinine (0.6-1.2) mg/dl Est Cr Clr Drug Dosing ml/min Est GFR ( Amer) ml/min Est GFR (Non-Af Amer) ml/min BUN/Creatinine Ratio (10-20) Glucose (70-99(Fasting)) mg/dl Calcium (8.5-10.1) mg/dl C-Reactive Protein (0-0.5) mg/dl Procalcitonin (0-0.5) ng/ml SARS-CoV-2, RNA, NAAT (NEGATIVE) Diagnostic Findings [facility] Patient: CHARLES LAGOS (Female) : 37 Status: ER Date: 04/27/22 02:37 Room #: History: Recent lt knee surgery. Now with LLE redness and swelling/infection. R/O DVT Slices: 22 Priors: Tech: Louise Dodge @ [id number] Exams: US VENOUS LEFT LOWER EXTREMITY Contrast: Accession Numbers: [id number] Referring Physician: REFERRED SELF Preliminary Findings Only See Final Report For Complete Findings US VENOUS LEFT LOWER EXTREMITY: No evidence of deep venous thrombosis. Radiologist: Alfonso Salazar MD Study ready at 02:39 and initial results transmitted at 02:44 *This report constitutes a preliminary interpretation only. Non-acute findings felt to be unrelated to the clinical presentation may not be discussed in this report. The study will be interpreted and a final report will be generated by the local Radiologist the following shift. To reach the hospital radiology department call [phone]. If a discrepancy is found between the preliminary and final interpretations of this study, please notify us via our Client Portal at [email or web address], under QA Exams. You can also fax this report with a description of the discrepancy, or include the final report, to our daytime fax number [phone]. If faxing, please indicate the severity of discrepancy using one of the following categories: [ ] 1 - Agree/Informational [ ] 2 - Unlikely to Affect Management [ ] 3 - Possible Eventual Change of Management [ ] 4 - Probable Immediate Change of Management For all other patient related information, please fax us at [phone]. [id number] Supervising Physician Co-Signing Physician Notes Attending addendum: I have physically seen this patient, have supervised the medical residents activities, and agree with the H&P unless as otherwise noted. Assessment and Plan: Left lower extremity cellulitis- Status post vancomycin IV and cefepime IV from the ED, will continue Acetaminophen 650 mg p.o. every 6 hours. Mild pain or fever left lower extremity Doppler negative for DVT Blood cultures ordered and pending, will follow Acute kidney injury- Creatinine 1.27, with baseline 0.92 Follow serial BMP in particular follow closely while on vancomycin Continue IV fluids for rehydration, LR at 125 mils per hour Hypertension- Continue amlodipine Hold lisinopril due to ROBERT LR at 125 mils per hour Remaining orders and notations as noted Resident Activity Tracking Resident Involvement: Resident Care Provided Care Provided: [facility]
[2022-04-27] MEDS ORDERED: VANCOMYCIN CONSULT ACTIVE PRN (04:00)
[2022-04-27] MEDS ORDERED: LACTATED RINGER'S 1,000 ML IV SCH (04:00)
[2022-04-27] MEDS ORDERED: traMADol HCL 50 MG TABLET PO PRN (04:00)
[2022-04-27] MEDS ORDERED: ACETAMINOPHEN 325 MG TAB PO PRN (04:43)
[2022-04-27 06:52] LABS: Basophils # (auto) 0.05 K/uL (0-0.2); Basophils % (auto) 0.8 %; Eosinophils # (auto) 0.44 K/uL (0-0.50); Eosinophils % (auto) 7.1 %; Hematocrit (blood only) 34.5 % (34.1-44.9); Hemoglobin 11.5 g/dl (12.0-16.0); Immature Granulocytes # (auto) 0.01 K/uL (0.00-0.02); Immature Granulocytes % (auto) 0.2 %; Lymphocytes # (auto) 1.15 K/uL (1.2-3.4); Lymphocytes % (auto) 18.7 %; Mean Corpuscular Hemoglobin 32.3 pg (25.0-34.0); Mean Corpuscular Hgb Conc 33.3 g/dL (32.0-36.0); Mean Corpuscular Volume 96.9 fL (80.0-100.0); Mean Platelet Volume 9.5 fL (9.4-12.3); Monocytes # (auto) 0.83 K/uL (0.24-0.82); Monocytes % (auto) 13.5 %; Neutrophils # (auto) 3.68 K/uL (1.4-6.5); Neutrophils % (auto) 59.7 %; Platelet Count 222 K/uL (130-400); RDW Coefficient of Variation 13.7 % (11.5-14.5); RDW Standard Deviation 49.2 fL (36.4-46.3); Red Blood Count 3.56 M/uL (3.93-5.22); White Blood Count 6.16 K/ul (4.8-10.8)
--- NOTE | 2022-04-27 06:55 | XRay Report ---
XR knee LT 1 or 2V routine HISTORY: 87 years-old Female post op infection acute pain of the left knee COMPARISON: Left femur radiographs 05/10/2021 TECHNIQUE: 2 views of the left knee FINDINGS: Unchanged total joint arthroplasty with interval revision. Small to moderate size joint effusion. Cor ticated ossifications are noted surrounding the knee. There is cement material of the proximal tibia which extends posterior lateral to the cortex. No definite acute fracture, dislocation or evidence of hardware loosening. Mild diffuse soft tissue prominence is most pronounced laterally. IMPRESSION: 1. No acute fracture or dislocation. 2. Hinged total joint arthroplasty without evidence of hardware complication. 3. Small to moderate joint effusion with lateral predominant soft tissue swelling. ACT 112: Negative or not required by law. The above report was generated using voice recognition software. It may contain grammatical, syntax o r spelling errors. Electronically signed by: George Dupont M.D. 04/27/2022 6:53 AM
[2022-04-27 07:22] LABS: Calcium 8.8 mg/dl (8.5-10.1); Creatinine Clr Calc Pharmacy 43.7 ml/min; Est GFR (African American) 59.1 ml/min; Potassium 3.9 mmol/L (3.5-5.1)
--- NOTE | 2022-04-27 07:53 | Ultrasound Report ---
LEFT LOWER EXTREMITY VENOUS DOPPLER CLINICAL HISTORY: LLE pain and swelling s/p L knee replacement COMPARISON STUDY: Lower extremity venous Doppler ultrasound January 10, 2009. TECHNIQUE: Sonography of the deep venous system of the left lower extremity was performed. Compressi on and augmentation were evaluated. FINDINGS: The left common femoral, superficial femoral and popliteal veins were compressible. Augmen tation was normal. Flow was shown within the deep calf vessels. IMPRESSION: No evidence of deep venous thrombus within the left lower extremity. ACT 112: Negative or not required by law. Electronically signed by: Cecilio Palomino M.D. 04/27/2022 7:51 AM
--- NOTE | 2022-04-27 08:24 | Hospitalist Progress Note ---
Date of Service April 27, 2022 Assessment & Plan (1) Cellulitis of left lower extremity: Plan: Patient is an 87 yo with PMHx of recent L knee replacement revision, HTN, anxiety, hyperthyroidism admitted for LLE cellulitis vs post op wound infection. Cellulitis of LLE s/p L knee surgery vs. post-op wound infection - Received vancomycin and cefepime in ED, continued on admission - No leukocytosis on admission labs - Patient hemodynamically stable and has been afebrile - Tylenol prn pain/fever - Wells criteria score 3: LLE doppler ordered on admission to evaluate for DVT which was negative - Blood cx ordered, pending - Continue to trend CBC - PT ordered - d/c vanco d/t neg MRSA nares, narrowed coverage from cefepime to cefazolin 2 g q8hr - will consider ortho consult d/t recent knee surgery and possible involvement of the artificial knee ROBERT - Mild ROBERT, Cr 1.27 - Suspect secondary to decreased PO ntake - IVF for hydration at 125 mL/hr started upon admission - Cr improved to 1 this AM, d/c fluids - encouraged adequate PO intake Hypertension - Continue home amlodipine, lisinopril originally held d/t ROBERT - resumed lisinopril as BP running high and ROBERT resolved Anxiety - Continue home wellbutrin and lexapro Hyperthyroidism - Continue home methimazole (2) Postoperative wound infection: (3) Hypertension: (4) Hyperthyroidism: (5) Anxiety: (6) Mild intermittent asthma: (7) History of trigeminal neuralgia: (8) History of TIA (transient ischemic attack): (9) ROBERT (acute kidney injury): Plan Dispo: med/surg FENGI: heart healthy diet Code status: Full code Consults: consider ortho Admission and Anticipated Discharge Date Admission Date: April 27, 2022 Supervising Physician Co-Signing Physician Notes I personally examined the patient and verified all berry points of history and exam, discussed case, and agree with decision making with Dr Holly Notes to me that the redness is much better, pain improved. Had knee replacement about 2 weeks ago at [place]. Vitals noted, in general she is awake and alert pleasant no distress. HEENT normocephalic atraumatic mucous membranes moist. Left lower extremity incision appears clean dry and intact, about 3 cm distal to incision there is a small open area with a mild degree of exudate but no real fluctuanceit looks like there may have been a drain site there before, and she has a little bit of patchy erythema distal, no crepitus no fluctuance anywhere otherwise. Medial knee is somewhat tender with a mildly palpable effusion, but the knee itself is not red or hot Left lower extremity cellulitiswith recent total knee, and proximity to the knee, I do harbor concern about whether or not there could be a septic joint. Fortunately the overall presentation is extremely reassuring given that the erythema itself is all distal, and the knee itself is not markedly red hot or tender. Negative MRSA nares carries a surprisingly good negative predictive value across infections everywhereto that end, okay to downgrade to MSSA level coveragecefazolin. No clear need for concern on gram-negative's (hence changing vancomycin and cefepime to cefazolin), follow. Orthopedics eval, if improving, probably home on Keflex in the near future. Subjective 04/26/2022: Pt feels overall well this AM. Pt explains that she noticed the swelling on the outer side of left leg a few days ago. Then she noticed the increasing redness and especially the redness around the scab site that was present since the revision surgery. She describes yellow colored thick mixed with thin discharge from this scab. The pt has noticed an improvement in the redness since coming to the hospital. She denies pain except mild discomfort with palpation of the wound area. She denies associated symptoms of fever, chills, SOB. Physical Exam Constitutional: NAD. Vitals WNL. Eyes: no conjunctival abnormality Respiratory: CTA bilaterally. No rhonchi, wheezing, or crackles. Non labored breathing. Cardiovascular: RRR. No murmur noted. No pitting LL edema. Gastrointestinal (Abdomen): Nontender, +BS. No masses noted. Skin: Erythematous and hot left knee joint spreading downward to about mid calf, most prevalent on lateral side of leg. Visible scar from knee replacement and subsequent revision- healing well. 1 cm scab noticed at the distal end of scar- no denny discharge. Small amounts of serous fluid expressed manually. Left knee appears larger in size than right knee d/t swelling. Psychiatric: Alert. Mood and affect congruent. Results & Data Results & Data ([facility]) Vital Signs (Past 12 Hours) Vital Signs Temp Pulse Pulse Resp BP BP Pulse Ox 10/29/22 07:41 36.4 C L 60 18 161/76 H 95 04/27/22 04:02 36.3 C L 72 18 172/98 H 96 04/27/22 01:00 68 16 168/70 H 97 04/26/22 23:00 78 18 178/65 H 98 04/26/22 20:29 37.1 C 107 H 18 180/74 H 94 O2 Del Method 04/27/22 07:41 Room Air 04/27/22 04:02 Room Air 04/27/22 01:00 Room Air 04/26/22 23:00 Room Air 04/26/22 20:29 Room Air Resident Activity Tracking Resident Involvement: Resident Care Provided Care Provided: Adult Hospital Medicine
[2022-04-27] MEDS: methIMAzole 5 MG TABLET PO SCH (08:56)
[2022-04-27] MEDS: buPROPion XL 150 MG TABCR PO SCH (08:56)
[2022-04-27] MEDS: amLODIPine BESYLATE 5 MG TAB PO SCH (08:56)
[2022-04-27] MEDS: CeleBREX 200 MG CAP PO SCH (08:56)
[2022-04-27] MEDS: OXYBUTYNIN CHLORIDE XL 5 MG TABCR PO SCH (08:57)
[2022-04-27] MEDS: PANTOprazole 40 MG TAB PO SCH (08:57)
[2022-04-27] MEDS ORDERED: CEFEPIME 2,000 MG in SYRINGE 0 ML IV SCH (10:00)
[2022-04-27] MEDS ORDERED: VANCOMYCIN HCL 1,250 MG in SODIUM CHLORIDE 0.9% 250 ML IV SCH (12:00)
[2022-04-27] MEDS: lisinopril 20 MG TAB PO SCH (12:05)
[2022-04-27] MEDS: ceFAZolin 2000MG 2,000 MG/15 ML SYR IV SCH ×2 (14:00→21:02)
[2022-04-27] MEDS: ESCITALOPRAM OXALATE 10 MG TAB PO SCH (20:18)
[2022-04-28] MEDS: ceFAZolin 2000MG 2,000 MG/15 ML SYR IV SCH ×3 (05:29→21:40)
[2022-04-28 06:16] LABS: Basophils # (auto) 0.06 K/uL (0-0.2); Basophils % (auto) 1.1 %; Eosinophils % (auto) 9.5 %; Hematocrit (blood only) 35.5 % (34.1-44.9); Hemoglobin 11.7 g/dl (12.0-16.0); Immature Granulocytes # (auto) 0.02 K/uL (0.00-0.02); Immature Granulocytes % (auto) 0.4 %; Lymphocytes # (auto) 1.04 K/uL (1.2-3.4); Lymphocytes % (auto) 19.8 %; Mean Corpuscular Hemoglobin 32.3 pg (25.0-34.0); Mean Corpuscular Volume 98.1 fL (80.0-100.0); Mean Platelet Volume 9.3 fL (9.4-12.3); Monocytes # (auto) 0.71 K/uL (0.24-0.82); Monocytes % (auto) 13.5 %; Neutrophils # (auto) 2.91 K/uL (1.4-6.5); Neutrophils % (auto) 55.7 %; Platelet Count 226 K/uL (130-400); RDW Coefficient of Variation 13.7 % (11.5-14.5); Red Blood Count 3.62 M/uL (3.93-5.22); White Blood Count 5.24 K/ul (4.8-10.8)
[2022-04-28 06:45] LABS: BUN Creatinine Ratio 24.1 (10-20); Calcium 9.3 mg/dl (8.5-10.1); Creatinine Clr Calc Pharmacy 37.7 ml/min; Est GFR (African American) 49.4 ml/min; Est GFR (Non-African American) 42.6 ml/min; Potassium 4.1 mmol/L (3.5-5.1)
--- NOTE | 2022-04-28 08:12 | Hospitalist Progress Note ---
Date of Service April 28, 2022 Assessment & Plan (1) Cellulitis of left lower extremity: Plan: Patient is an 87 yo with PMHx of recent L knee replacement revision, HTN, anxiety, hyperthyroidism admitted for LLE cellulitis vs post op wound infection. Cellulitis of LLE s/p L knee surgery - Received vancomycin and cefepime in ED, continued on admission - No leukocytosis on admission labs - Patient hemodynamically stable and has been afebrile - Tylenol prn pain/fever - Wells criteria score 3: LLE doppler ordered on admission to evaluate for DVT which was negative - Blood cx neg - PT ordered - d/c vanco d/t neg MRSA nares, narrowed coverage from cefepime to cefazolin 2 g q8hr - erythema improving, pain improving - ortho consulted d/t possible, but unlikely, joint involvement - plan to d/c tomorrow pending ortho input on cephalexin 500 mg QID for a total of 7 days ABX therapy ROBERT - Mild ROBERT, Cr 1.27 - Suspect secondary to decreased PO intake - IVF for hydration at 125 mL/hr started upon admission - Cr improved to 1, d/c fluids 04/27 - Cr 1.16 04/28 - encouraged adequate PO intake Hypertension - Continue home amlodipine, lisinopril originally held d/t ROBERT - resumed home lisinopril as BP running high and ROBERT resolved - per pt, BP run normal at home Anxiety - Continue home wellbutrin and lexapro Hyperthyroidism - Continue home methimazole (2) Postoperative wound infection: (3) Hypertension: (4) Hyperthyroidism: (5) Anxiety: (6) Mild intermittent asthma: (7) History of trigeminal neuralgia: (8) History of TIA (transient ischemic attack): (9) ROBERT (acute kidney injury): Plan Dispo: d/c home after ortho input FEN: heart healthy diet Code status: Full Consults: ortho Admission and Anticipated Discharge Date Admission Date: April 27, 2022 Supervising Physician Co-Signing Physician Notes I personally examined the patient and verified all berry points of history and exam, discussed case, and agree with decision making with Dr Holly Leg feeling better. Still has a little area of scab that is oozing some pus fairly distal to the knee and the incisionin discussing situation and plan, as well as follow-up with orthopedics, we discussed that since it is a low probability that she has a septic knee, it would be reasonable to follow-up with orthopedic surgeon as an outpatient if she felt comfortable with this, which she did, but unfortunately after further discussion it sounded like there would be some transportation issues making it not entirely reliable for her to be able to make it to [place] for follow-up. Vitals noted, in general she is awake and alert pleasant no distress. HEENT normocephalic atraumatic mucous membranes moist. Left lower extremity incision is clean dry and intact, knee tender medial joint line but less than yesterday less of a palpable effusion to maybe no real palpable effusion today. Erythema has essentially cleared distal to the knee, except for the area where there is a scab that looks like there was a drain, there is a little bit of fluctuance under the skin with that today, I am able to express a small amount of exudate without tenderness however. Left lower extremity cellulitiswith recent total knee, and proximity to the knee, doubt septic kneebut given that she had a recent joint replacement and the cellulitic area did come close to the incision, and the main area of focus is where it appears there was a drain, would definitely appreciate orthopedics evaluation to be safe. We talked about, and were likely, to get her home on p.o. antibiotics to have her follow-up with her orthopedic surgeon in [place], but after discussion, it sounded like transportation issues were going to make this not very reliable, and then she decided that she would prefer to be evaluated by the local [facility] orthopedic surgeon. Again doubt septic joint, but given the high risk situation, appreciate second opinion from orthopedics. Fortunately, infection itself has improved nicely on cefazolinand will be able to send home on cephalexin. Only other lingering question is that small area of fluctuanceit seems to be open and drainingI doubt anything really needs an I&D other than ongoing gentle drainage, follow. Subjective Patient is an 87 yo with PMHx of recent L knee replacement revision, HTN, anxiety, hyperthyroidism admitted for LLE cellulitis vs post op wound infection. Pt feeling well this morning. She feels that her left leg is less painful (basically non painful now) than previously. Pt asks if she is able to continue doing post op exercises as she does not want to lose any progress she had made with joint mobility. Physical Exam Constitutional: NAD. Vitals WNL. Eyes: no conjunctival abnormality Respiratory: CTA bilaterally. No rhonchi, wheezing, or crackles. Non labored breathing. Cardiovascular: RRR. No murmur noted. Skin: Erythematous left lower extremity spreading downward from below the knee joint to about mid calf, most prevalent on lateral side of leg. Showing improvements in degree of erythema from yesterday. Visible scar from knee replacement and subsequent revision- healing well. 1 cm scab at the distal end of scar- no denny discharge. Small amounts of serous and thicker discharge able to be expressed manually. Left knee appears slightly larger in size than right- improved from yesterday. Psychiatric: Alert. Mood and affect congruent. Results & Data Results & Data ([facility]) Vital Signs (Past 12 Hours) Vital Signs Temp Pulse Resp BP Pulse Ox O2 Del Method 04/28/22 07:15 36.6 C 64 17 174/77 H 94 Room Air 04/27/22 21:42 36.6 C 69 16 148/75 H 95 Room Air Resident Activity Tracking Resident Involvement: Resident Care Provided Care Provided: Adult Hospital Medicine
[2022-04-28] MEDS: lisinopril 20 MG TAB PO SCH (08:14)
[2022-04-28] MEDS: CeleBREX 200 MG CAP PO SCH (08:15)
[2022-04-28] MEDS: OXYBUTYNIN CHLORIDE XL 5 MG TABCR PO SCH (08:15)
[2022-04-28] MEDS: PANTOprazole 40 MG TAB PO SCH (08:16)
[2022-04-28] MEDS: buPROPion XL 150 MG TABCR PO SCH (08:16)
[2022-04-28] MEDS: amLODIPine BESYLATE 5 MG TAB PO SCH (08:17)
[2022-04-28] MEDS: methIMAzole 5 MG TABLET PO SCH (08:17)
--- NOTE | 2022-04-28 19:03 | Billing Data ---
Date of Service April 28, 2022 Coding Level of Care Code 43163 Subseq Hosp Care Lvl 3
[2022-04-28] MEDS: ESCITALOPRAM OXALATE 10 MG TAB PO SCH (21:39)
[2022-04-29] MEDS: ceFAZolin 2000MG 2,000 MG/15 ML SYR IV SCH ×2 (06:18→13:36)
[2022-04-29 08:14] LABS: Hematocrit (blood only) 38.4 % (34.1-44.9); Hemoglobin 12.4 g/dl (12.0-16.0); Mean Corpuscular Hemoglobin 31.9 pg (25.0-34.0); Mean Corpuscular Hgb Conc 32.3 g/dL (32.0-36.0); Mean Corpuscular Volume 98.7 fL (80.0-100.0); Mean Platelet Volume 9.6 fL (9.4-12.3); Platelet Count 241 K/uL (130-400); RDW Coefficient of Variation 13.6 % (11.5-14.5); RDW Standard Deviation 49.8 fL (36.4-46.3); Red Blood Count 3.89 M/uL (3.93-5.22); White Blood Count 4.82 K/ul (4.8-10.8)
--- NOTE | 2022-04-29 08:22 | Hospitalist Progress Note ---
Date of Service April 29, 2022 Assessment & Plan (1) Cellulitis of left lower extremity: Plan: Patient is an 87 yo with PMHx of recent L knee replacement revision, HTN, anxiety, hyperthyroidism admitted for LLE cellulitis vs post op wound infection. Cellulitis of LLE s/p L knee surgery - Received vancomycin and cefepime in ED, continued on admission - No leukocytosis on admission labs - Patient hemodynamically stable and has been afebrile - Tylenol prn pain/fever - Wells criteria score 3: LLE doppler ordered on admission to evaluate for DVT which was negative - Blood cx neg - PT ordered - d/c vanco d/t neg MRSA nares, narrowed coverage from cefepime to cefazolin 2 g q8hr - erythema improving, pain improving - ortho consulted d/t possible, but unlikely, joint involvement - plan to d/c tomorrow pending ortho input on cephalexin 500 mg QID for a total of 7 days ABX therapy ROBERT - Mild ROBERT, Cr 1.27 - Suspect secondary to decreased PO intake - IVF for hydration at 125 mL/hr started upon admission - Cr improved to 1, d/c fluids 04/27 - Cr 1.16 04/28 - encouraged adequate PO intake Hypertension - Continue home amlodipine, lisinopril originally held d/t ROBERT - resumed home lisinopril as BP running high and ROBERT resolved - per pt, BP run normal at home Anxiety - Continue home wellbutrin and lexapro Hyperthyroidism - Continue home methimazole (2) Postoperative wound infection: (3) Hypertension: (4) Hyperthyroidism: (5) Anxiety: (6) Mild intermittent asthma: (7) History of trigeminal neuralgia: (8) History of TIA (transient ischemic attack): (9) ROBERT (acute kidney injury): Plan Dispo: d/c home after ortho input FEN: heart healthy diet Code status: Full Consults: ortho Admission and Anticipated Discharge Date Admission Date: April 27, 2022 Subjective Patient is an 87 yo with PMHx of recent L knee replacement revision, HTN, anxiety, hyperthyroidism admitted for LLE cellulitis vs post op wound infection. 04/29: 04/28: Pt feeling well this morning. She feels that her left leg is less painful (basically non painful now) than previously. Pt asks if she is able to continue doing post op exercises as she does not want to lose any progress she had made with joint mobility. Review of Systems Review of Systems: See HPI Results & Data Results & Data ([facility]) Vital Signs (Past 12 Hours) Vital Signs Temp Pulse Resp BP Pulse Ox O2 Del Method 04/29/22 07:44 36.4 C L 56 L 16 152/80 H 96 Room Air 04/28/22 22:02 36.4 C L 66 18 139/83 95 Room Air
[2022-04-29 08:36] LABS: BUN Creatinine Ratio 24.8 (10-20); Calcium 9.5 mg/dl (8.5-10.1); Creatinine Clr Calc Pharmacy 37.3 ml/min; Est GFR (African American) 48.9 ml/min; Est GFR (Non-African American) 42.2 ml/min; Potassium 4.5 mmol/L (3.5-5.1)
[2022-04-29] MEDS: PANTOprazole 40 MG TAB PO SCH (09:04)
[2022-04-29] MEDS: CeleBREX 200 MG CAP PO SCH (09:04)
[2022-04-29] MEDS: lisinopril 20 MG TAB PO SCH (09:04)
[2022-04-29] MEDS: OXYBUTYNIN CHLORIDE XL 5 MG TABCR PO SCH (09:04)
[2022-04-29] MEDS: amLODIPine BESYLATE 5 MG TAB PO SCH (09:05)
[2022-04-29] MEDS: buPROPion XL 150 MG TABCR PO SCH (09:05)
[2022-04-29] MEDS: methIMAzole 5 MG TABLET PO SCH (09:05)
--- NOTE | 2022-04-29 10:08 | Orthopedic Consultation ---
Date of Consultation April 29, 2022 Assessment & Plan (1) Cellulitis of left lower extremity: 87 year old female with LLE cellulitis, 6 weeks s/p left total knee revision -Appears to be superficial infection with no joint involvement -Patient improving on IV cefazolin, will be switched to cephalexin po at d ischarge per primary -Continue with PT/OT for rehab s/p left total knee revision -Patient to follow up with Dr Sam 05/06. She was instructed to call Dr Sam office is she noticed any worsening pain, swelling, redness or worsening drainage -Patient orthopedically stable for discharge on PO antibiotics -Case discussed with my attending Dr Lewis, and Dr Sam who were in agreement with this plan Supervising Physician Co-Signing Physician Notes I, Dr. Lewis, saw and examined the patient and discussed the management with my PA. I reviewed my PAs note and agree with the documented findings and the plan of care I developed. History of Present Illness Reason for Consultation: Left lower extremity cellulitis Attending Physician: Bryson Varela, DO History of Present Illness Elba is a 87 year old female who was admitted to the hospital two days ago for left lower extremity cellulitis. She had left total knee revision surgery done with Dr Sam on 03/20/22 at [facility]. She was doing well until about a week ago she noticed drainage coming from scab and redness surrounding. She says that she has had a sab there since surgery. She was admitted to the hospital and put on IV cefazolin. Patient reports she has greatly improved with the antibiotics. The redness and local swelling has improved as well as her pain. She denies any fever or chills. There have been no changes in her range of motion since the cellulitis started. Allergies Allergy/AdvReac Type Severity Reaction Status Date / Time No Known Allergies Allergy Unknown Verified 04/27/22 00:13 Home Medications Medication Instructions Recorded Confirmed Type acetaminophen 500 mg tablet 1,000 mg PO Q6H PRN Pain 12/18/20 04/27/22 History (Tylenol Extra Strength) escitalopram oxalate 10 mg tablet 10 mg PO HS 12/18/20 04/27/22 History lisinopril 20 mg tablet 20 mg PO QAM 12/18/20 04/27/22 History pantoprazole 40 mg tablet,delayed 40 mg PO QAM 12/18/20 04/27/22 History release methimazole 10 mg tablet 10 mg PO QAM 05/10/21 04/27/22 History amlodipine 5 mg tablet 5 mg PO QAM 04/26/22 04/27/22 History bupropion HCl 150 mg 24 hr tablet, 150 mg PO QAM 04/26/22 04/27/22 History extended release celecoxib 200 mg capsule 200 mg PO UD 04/26/22 04/27/22 History oxybutynin chloride 15 mg 15 mg PO QAM 04/26/22 04/27/22 History tablet,extended release 24 hr tramadol 50 mg tablet 50 mg PO Q8 PRN Pain 04/26/22 04/27/22 History Patient History Medical History (Updated 04/27/22 @ 04:39 by Roxanne Oh DO) Anxiety Hiatal hernia History of TIA (transient ischemic attack) History of trigeminal neuralgia s/p surgery Hypertension Hyperthyroidism under Dr Barrington Hamilton Overactive bladder Status post bilateral knee replacements Surgical History History of bilateral hip replacements History of cholecystectomy History of eye surgery Gold weight placed on left eye to help with closing History of hysterectomy with bilateral oophorectomy History of tonsillectomy Social History Smoking Status: Never smoker Second Hand Exposure: No; Do You Dip or Chew Tobacco: No; Tobacco Cessation Education Requested by Patient: No Hx Alcohol Use: Yes Alcohol type: wine Hx Substance Use: No Preferred Language: Hungarian Communication Ability: Effective Director Of Strategic Marketing Required: Yes Beliefs That Will Affect Care: None marital status: / Current Living Situation: Alone Current Living Situation Comment: Grandsons do her grocery shopping and she has good neighbors How many Children do You have: 1 Other Information That Helps Us Care for You: No Feels Safe at Home: Yes Safety Concerns: Feels Safe At This Time Assistive Devices: Cane Review of Systems Review of Systems: Patient denies any fevers, chills or malaise Physical Exam Physical Exam: General: Pt laying in hospital bed AA&O, in NAD, calm and cooperative during exam Lower Extremity: Incisions healed, clean/dry, well approximated with no wound dehiscence. Approx 3cm distal to incision there is a quarter sized scab with small tract where purulent drainage is able to be expressed. Fluctuance noted. Patient is very mild tenderness over scab. There is surrounding erythema. There is no fluctuance, redness or warmth or palpable pain over incision. There is very small knee effusion noted. Patient is non tender to palpate lateral and medial joint lines nor the popliteal space. She has pain-free ROM 0-60 degrees laying down. She can get to 90 degrees when she is sitting. This has been her baseline and nothing has worsened since superficial infection noted. Pt has full ROM of ankle and all 5 digits. Pt has 5/5 strength with resisted DF/PF. SLR in tact. Calf supple and non tender. NVI with sensation to light touch distally and good distal pulses present. Lower extremity noted to have good color and temperature with no signs of vascular or lymphatic insufficiency. Results & Data ([facility]) Vital Signs (Past 12 Hours) Vital Signs Temp Pulse Resp BP Pulse Ox O2 Del Method 04/29/22 07:44 36.4 C L 56 L 16 152/80 H 96 Room Air Laboratory Results WBC 4.82 Diagnostic Findings XR knee LT 1 or 2V routine 04/26/22 HISTORY: 87 years-old Female post op infection acute pain of the left knee COMPARISON: Left femur radiographs 05/10/2021 TECHNIQUE: 2 views of the left knee FINDINGS: Unchanged total joint arthroplasty with interval revision. Small to moderate size joint effusion. Corticated ossifications are noted surrounding the knee. There is cement material of the proximal tibia which extends posterior lateral to the cortex. No definite acute fracture, dislocation or evidence of hardware loosening. Mild diffuse soft tissue prominence is most pronounced laterally. IMPRESSION: 1. No acute fracture or dislocation. 2. Hinged total joint arthroplasty without evidence of hardware complication. 3. Small to moderate joint effusion with lateral predominant soft tissue swelling.
[2022-04-29] MEDS ORDERED: INFLUENZA VACCINE HIGH DOSE PF 65+ 0.7 ML SYR IM ONE (14:45)
[2022-04-29] MEDS ORDERED: cephALEXin 500 MG CAP PO STA (15:13)
--- NOTE | 2022-04-29 16:55 | Discharge Summary ---
Date of Service April 29, 2022 Admission HPI Per Admitting Provider Elba Lagos is an 87 yo female with PMHx of trigeminal neualgia, TIA, HTN, hyperthyroidism, anxiety, asthma, hip replacement, and bilateral knee replacements presenting to the hospital 04/26/22 due to cellulitis of the LLE s/p left knee replacement. Patient had revision of left knee replacement just over 1 month ago (03/20/22) at [facility]; she was discharged to home 1-2 days post-op and states that she has been doing well since discharge. Patient has been doing home PT. She noted 1-2 weeks post-op that she had some increased swelling of the LLE, specifically the lateral aspect of the lower leg and the sh in. Within the past couple of days, patient also developed erythema at the distal aspect of the incision that has spread more inferiorly to the mid calf. Patient also complains of pain to touch of the leg. She denies fever, chills, abd pain, nausea, vomiting, diarrhea, constipation, or urinary symptoms. She has been eating well and sleeping well. Patient notes that she lives alone. She feels that she has good family and friend support. Grandsons do shopping for her. She cooks, cleans, and manages finances. Patient has 2 steps to get to a landing and then 1 step into the home. First floor living. In the ER, patient found to have extensive cellulitis of the LLE with mildly elevated inflammtory markers including CRP 1.33 and ESR 33. Procal negative. No leukocytosis. No anemia. Mild ROBERT with Cr 1.27 and GFR 44.3. She is COVID negative. ER physician spoke with on-call ortho for this hospital as well as on- call ortho at [facility] where patient had knee replacement performed and ultimately admission recommended here for IV abx therapy given the cellulitis. Admission Exam Per Admitting Provider GENERAL: No acute distress. Well developed and well nourished. Vital signs reviewed as above. EYES: EOMI. Anicteric sclerae. HENT: Moist mucous membranes. RESPIRATORY: Clear to auscultation bilaterally. No wheezing, rales, or rhonchi. CARDIOVASCULAR: Regular rate and rhythm. + murmurs. No JVD. ABDOMEN: Soft, non-tender and non-distended. Normal bowel sounds. LEFT LOWER EXTREMITY: LLE edema. Healing incision over left knee with scab at distal aspect; no discharge from incision. Significant erythema with warmth and tenderness to palpation. There is + tenderness to calf squeeze. + tenderness to light palpation of verde. 5/5 strength with flexion of right hip, extension of left hip, and flexion/extension of left ankle. RIGHT LOWER EXTREMITY: No gross swelling. No rash. No erythema. No edema. No warmth. SKIN: Warm, dry. See above. NEUROLOGIC: A/O x3. Normal speech. CN V and VII impaired on right (decreased sensation, right lip with incomplete closure and unable to fully smile) which is chronic s/p trigeminal neuralgia and TIA. PSYCHIATRIC: Cooperative. Appropriate mood and affect. Principal Diagnosis Cellulitis s/p Knee Replacement Surgery Discharge Exam Gen: NAD, alert, interactive HEENT: Supple, no LAD, no thyromegaly, no JVD Resp:Non-labored, no wheezing/rhonchi/rales, CTAB CV:RRR, normal S1/S2, no M/R/G, metallic click after S2 Abd: Soft, non-distended, no TTP, normoactive bowels, no masses Extr: 2+ dp bilaterally, no edema Skin: Scabbed lesion (1 cm diameter) at inferior aspect of left knee surgical incision w/ surrounding erythema (3 cm in diameter). small discharge lesion Discharge Data Allergies Allergy/AdvReac Type Severity Reaction Status Date / Time No Known Allergies Allergy Unknown Verified 04/27/22 00:13 Consultations 04/28/22 12:39 Consult Orthopedic Surgery Routine Ordered Studies Laboratory Results WBC 4.82 K/ul (4.8-10.8) 04/29/22 07:32 RBC 3.89 M/uL (3.93-5.22) L 04/29/22 07:32 Hgb 12.4 g/dl (12.0-16.0) 04/29/22 07:32 Hct 38.4 % (34.1-44.9) 04/29/22 07:32 MCV 98.7 fL (80.0-100.0) 04/29/22 07:32 MCH 31.9 pg (25.0-34.0) 04/29/22 07:32 MCHC 32.3 g/dL (32.0-36.0) 04/29/22 07:32 RDW Std Deviation 49.8 fL (36.4-46.3) H 04/29/22 07:32 RDW Coeff of [place] 13.6 % (11.5-14.5) 04/29/22 07:32 Plt Count 241 K/uL (130-400) 04/29/22 07:32 MPV 9.6 fL (9.4-12.3) 04/29/22 07:32 Immature Gran % (Auto) 0.4 % 04/28/22 05:46 Neut % (Auto) 55.7 % 04/28/22 05:46 Lymph % (Auto) 19.8 % 04/28/22 05:46 [place] % (Auto) 13.5 % 04/28/22 05:46 Eos % (Auto) 9.5 % 04/28/22 05:46 Baso % (Auto) 1.1 % 04/28/22 05:46 Neut # (Auto) 2.91 K/uL (1.4-6.5) 04/28/22 05:46 Lymph # (Auto) 1.04 K/uL (1.2-3.4) L 04/28/22 05:46 [place] # (Auto) 0.71 K/uL (0.24-0.82) 04/28/22 05:46 Eos # (Auto) 0.50 K/uL (0-0.50) 04/28/22 05:46 Baso # (Auto) 0.06 K/uL (0-0.2) 04/28/22 05:46 Immature Gran # (Auto) 0.02 K/uL (0.00-0.02) 04/28/22 05:46 ESR 33 mm/hr (0-30) H 04/26/22 20:53 Sodium 139 mmol/L (136-145) 04/29/22 07:32 Potassium 4.5 mmol/L (3.5-5.1) 04/29/22 07:32 Chloride 105 mmol/L (98-107) 04/29/22 07:32 Carbon Dioxide 29 mmol/L (21-32) 04/29/22 07:32 Anion Gap 5 (3-11) 04/29/22 07:32 BUN 29 mg/dl (6-23) H 04/29/22 07:32 Creatinine 1.17 mg/dl (0.6-1.2) 04/29/22 07:32 Est Cr Clr Drug Dosing 37.3 ml/min 04/29/22 07:32 Est GFR ( Amer) 48.9 ml/min 04/29/22 07:32 Est GFR (Non-Af Amer) 42.2 ml/min 04/29/22 07:32 BUN/Creatinine Ratio 24.8 (10-20) H 04/29/22 07:32 Glucose 95 mg/dl (70-99(Fasting)) 04/29/22 07:32 Calcium 9.5 mg/dl (8.5-10.1) 04/29/22 07:32 C-Reactive Protein 1.33 mg/dl (0-0.5) H 04/26/22 20:53 Procalcitonin < 0.05 ng/ml (0-0.5) 04/26/22 20:53 Nasal Screen MRSA (PCR) Negative (Negative) 04/27/22 05:00 SARS-CoV-2, RNA, NAAT NEGATIVE (NEGATIVE) 04/27/22 00:44 Impressions Knee X-Ray 04/26/22 21:30 XR knee LT 1 or 2V routine HISTORY: 87 years-old Female post op infection acute pain of the left knee COMPARISON: Left femur radiographs 05/10/2021 TECHNIQUE: 2 views of the left knee FINDINGS: Unchanged total joint arthroplasty with interval revision. Small to moderate size joint effusion. Corticated ossifications are noted surrounding the knee. There is cement material of the proximal tibia which extends posterior lateral to the cortex. No definite acute fracture, dislocation or evidence of hardware loosening. Mild diffuse soft tissue prominence is most pronounced laterally. IMPRESSION: 1. No acute fracture or dislocation. 2. Hinged total joint arthroplasty without evidence of hardware complication. 3. Small to moderate joint effusion with lateral predominant soft tissue swelling. ACT 112: Negative or not required by law. The above report was generated using voice recognition software. It may contain grammatical, syntax or spelling errors. Electronically signed by: George Dupont M.D. 04/27/2022 6:53 AM Venous Doppler Study 04/27/22 01:58 LEFT LOWER EXTREMITY VENOUS DOPPLER CLINICAL HISTORY: LLE pain and swelling s/p L knee replacement COMPARISON STUDY: Lower extremity venous Doppler ultrasound January 10, 2009. TECHNIQUE: Sonography of the deep venous system of the left lower extremity was performed. Compression and augmentation were evaluated. FINDINGS: The left common femoral, superficial femoral and popliteal veins were compressible. Augmentation was normal. Flow was shown within the deep calf vessels. IMPRESSION: No evidence of deep venous thrombus within the left lower extremity. ACT 112: Negative or not required by law. Electronically signed by: Cecilio Palomino M.D. 04/27/2022 7:51 AM Hospital Course (1) Cellulitis of left lower extremity: Patient is an 87 yo with PMHx of recent L knee replacement revision, HTN, anxiety, hyperthyroidism admitted for LLE cellulitis vs post op wound infection. Cellulitis of LLE s/p L knee surgery - Received vancomycin and cefepime in ED, continued on admission - No leukocytosis on admission labs - Patient hemodynamically stable and has been afebrile - Tylenol prn pain/fever - Wells criteria score 3: LLE doppler ordered on admission to evaluate for DVT which was negative - Blood cx neg - PT ordered - D/c vanco d/t neg MRSA nares, narrowed coverage from cefepime to cefazolin 2 g q8hr 04/27 - Erythema improving, pain improving - Ortho consulted d/t possible, but unlikely, joint involvement, recommended discharge to home w/ follow up in [address] Sam - Discharge on Cephalexin 500 mg QID for a total of 7 days ABX therapy (will send with 5 days of Cephalexin) ROBERT - Mild ROBERT on admission (Cr 1.27), Cr 1.17 at discharge - Suspect secondary to decreased PO intake - IVF for hydration at 125 mL/hr started upon admission, discontinued 04/27 - encouraged adequate PO intake Hypertension - Continue home amlodipine, lisinopril originally held d/t ROBERT - resumed home lisinopril as BP running high and ROBERT resolved - per pt, BP run normal at home Anxiety - Continue home wellbutrin and lexapro Hyperthyroidism - Continue home methimazole (2) Postoperative wound infection: (3) Hypertension: (4) Hyperthyroidism: (5) Anxiety: (6) Mild intermittent asthma: (7) History of trigeminal neuralgia: (8) History of TIA (transient ischemic attack): (9) ROBERT (acute kidney injury): Plan Dispo: d/c home, f/u w/ ortho 05/06 FEN: heart healthy diet Code status: Full Consults: Ortho Total Time Total Time Spent Total Time Spent (In Minutes): 25 minutes Discharge Plan Discharge Items Patient Disposition: Home - Self-Care Reason For Visit: CELLULITIS S/P JOINT REPLACEMENT Discharge Diagnosis: Cellulitis s/p Joint Replacement Activity: Resume your previous activity Non-emergency contact: Primary Care Provider Call non-emergency contact if: you have any medication questions, your symptoms worsen, your pain is worsening and you have a fever Follow-up/Referrals: Casey Enriquez [Primary Care Provider] - Diet: Regular Addtl Attending Provider Instructions: You were admitted to the hospital for cellulitis (a skin infection) on your left leg near your recent surgical incision. You were treated with antibiotics (Cephazolin) via an IV. A discharge summary will be sent to your primary care physician to ensure continuity of care. Please bring this discharge summary with you to your next office appointment so that your provider can review it at that time. Follow-up appointments: - Make a follow-up appointment with your PCP within the next week. It is very important that you follow up with them shortly after discharge from the hospital. We have requested a follow-up appointment with your primary care physician within one week of discharge. Please call their office if you do not hear from them. - You are also scheduled to follow up with your Orthopedist (Dr. Sam) on 05/06, please be sure to keep this appointment. Medications: - Your medication list has been reviewed and reconciled upon discharge to ensure accuracy and continuity of care. An updated list of all your medications is included with your hospital discharge paperwork. Please review this list closely, and make note of any changes. - We sent a new medication called Cephalexin (Keflex),. Please take 500 mg four times a day for an additional 5 days (total of 7 days of antibiotics). - If you have any issues filling these prescriptions, please call [phone] and ask to leave a message for Dr. Bullock. - Take your medications as instructed; do not skip a dose of your medicines. Make sure all of your doctors know every medicine you are taking (including vcgd-laz-hhaseld medicines, vitamins, and supplements). - Call your primary care provider before taking any new medicines (including over- the-counter medicines, vitamins, and supplements), because some of these may interact with your current medications, or may make your symptoms worse. - Tell your primary care provider if you cannot afford your medications. Contact your Primary Care Provider if you experience: - Worsening redness of the incision/wound on your leg - Fever > 100.4 - Difficulty following your treatment plan or taking medications Call 911 or go to the emergency department if you experience: - Sudden, severe abdominal pain or nausea/vomiting - Severe chest pain, or chest pain that radiates (moves) to your jaw or arm - Sudden, severe shortness of breath or difficulty breathing It was a pleasure to be a part of your care, Dr. Deuce Bullock Addtl Apparel Cutter Provider Instructions: Orthopedic Discharge Instructions: - Continue antibiotics as prescribed - Continue with physical therapy and home exercises/stretches - WBAT with walker - Follow up with Dr Sam as scheduled on 05/06. Please call Dr Sam's office immediately if you notice any increased pain, redness, warmth or drainage or develop any fevers or chills Pending Studies at Discharge: No Stand-Alone Forms: My [facility], Smoking Cessation Medications and DC Order Prescriptions: New cephalexin 500 mg tablet 500 mg PO QID 5 Days Qty: 20 0RF Continued lisinopril 20 mg tablet 20 mg PO QAM pantoprazole 40 mg tablet,delayed release (DR/EC) 40 mg PO QAM escitalopram oxalate 10 mg tablet 10 mg PO HS acetaminophen [Tylenol Extra Strength] 500 mg Tablet 1,000 mg PO Q6H PRN (Reason: Pain) methimazole 10 mg tablet 10 mg PO QAM oxybutynin chloride 15 mg tablet extended release 24hr 15 mg PO QAM amlodipine 5 mg tablet 5 mg PO QAM celecoxib 200 mg capsule 200 mg PO UD tramadol 50 mg tablet 50 mg PO Q8 PRN (Reason: Pain) bupropion HCl 150 mg tablet extended release 24 hr 150 mg PO QAM Discharge Orders: Discharge Order (Routine); Ordered 04/29/22 Ordered By: Deuce Ivy/Other Patient Handouts: Cellulitis Dc Admission Data Admit Date/Time: 04/27/22 01:58 Attending Provider: Bryson Varela Admit Provider: Roxanne Oh Primary Care Provider: Casey Enriquez Other Providers: Chris Helton ; Henry Lewis Other Interventions: Discharge Summary Assessment (RN) Last Done: 04/29/22 16:57 Supervising Physician Co-Signing Physician Notes I also saw the patient confirmed berry portions of the history and physical examination. I agree with the impression and plan as noted in the resident documentation. Orthopedics consultation reviewed and appreciated. Clinically, the patient looks well. She notes decreased area of erythema of her left lower extremity. Upon examination, she has a circular scabbed area with surrounding erythema at the most inferior portion of her incision. Agree with discharge home today. Keflex 500 mg p.o. 4 times daily with orthopedics follow-up. Additional per resident documentation Resident Activity Tracking Resident Involvement: Resident Care Provided Care Provided: Adult Hospital Medicine
== END 2022-04-29 17:27 | disposition home or self-care (01) | DRG 603 ==
LOC: ED 20:22 → SUATTDRO 04-27 01:58 → 3W 04-27 01:58